=== PATIENT | female | born 1950 | race American Indian/Alaskan Native ===

== ENCOUNTER 2018-03-11 18:37 | Inpatient (IN) | payer MEDICARE, OTHER ==
[2018-03-11 23:36] VITALS: BMI 25.6
[2018-03-12] MEDS: Levothyroxine 100 MCG TAB PO SCH (06:14)
[2018-03-12 07:04] LABS: ALBUMIN 3.9 g/dL (3.5-5.0); CALCIUM 9.1 mg/dL (8.4-10.2)
[2018-03-12 07:12] LABS: MEAN CELL VOLUME 85.2 fl (81.0-99.0); MEAN CORPUSCULAR HEMOGLOBIN 29.1 pg (27.0-31.0); MEAN CORPUSCULAR HGB CONC 34.2 g/dL (33.0-37.0); RBC 3.42 Mil/uL (3.80-5.20); RED CELL DISTRIBUTION WIDTH 14.2 % (11.5-14.5)
[2018-03-12] MEDS ORDERED: Aspirin 325 mg EC Tablets PO SCH (09:00)
[2018-03-12] MEDS ORDERED: Brimonidine 0.2% 50 DROP/5 ML BOTTLE OD SCH (09:00)
[2018-03-12] MEDS ORDERED: Patient's Own Med (Nebivolol [Bystolic] 10 MG) PO SCH (09:00)
[2018-03-12] MEDS ORDERED: Brimonidine 0.2% 50 DROP/5 ML BOTTLE OU SCH (09:00)
[2018-03-12] MEDS ORDERED: Dorzolamide 2% Ophth Soln OD SCH (09:00)
[2018-03-12] MEDS: Pantoprazole 40 mg EC Tab PO SCH (09:01)
--- NOTE | 2018-03-12 14:17 | CP.PCM.CON ---
History of Present Illness - History of Present Illness History of Present Illness: Neurology Consultation Note: Mrs. Ambriz is a 67-year-old woman with a past medical history of multiple ischemic strokes, PFO, HTN, HLD, thyroid cancer s/p thyroidectomy, who recently had a subsequent stroke and presented to [facility]. MRI was done on 03/09/18 and showed a new left frontal/parietal lobe infarct. The patient is aphasic and has residual right side weakness. She was transferred to acute rehab for further care. Dr. David Sneed is her neurologist, and he asked me to assist while the patient is in rehab. Review of Systems - Review of Systems All systems: reviewed and no additional remarkable complaints except Past Patient History - Past Medical History & Family History Past Medical History?: Yes - Past Social History Smoking Status: Never Smoked - CARDIAC Hx Hypercholesterolemia: Yes Hx Hypertension: Yes Other/Comment: 02/10/18 S/P loop recorder (PFO). HX. of CVA with residual mild dysarthria 2016 ; 2017 - PULMONARY Hx Respiratory Disorders: No - NEUROLOGICAL Hx Neurological Disorder: Yes HX Cerebrovascular Accident: Yes (2016 and 2017) Hx Dementia: Yes - HEENT Hx Cataracts: Yes - RENAL Hx Chronic Kidney Disease: No - ENDOCRINE/METABOLIC Other/Comment: Borderline Diabetes - HEMATOLOGICAL/ONCOLOGICAL Hx Blood Disorders: No Hx AIDS: No Hx Human Immunodeficiency Virus (HIV): No - INTEGUMENTARY Hx Dermatological Problems: No - MUSCULOSKELETAL/RHEUMATOLOGICAL Hx Musculoskeletal Disorders: No Hx Falls: No - GASTROINTESTINAL Hx Gastrointestinal Disorders: No - GENITOURINARY/GYNECOLOGICAL Hx Genitourinary Disorders: No - PSYCHIATRIC Hx Depression: Yes Hx Substance Use: No - SURGICAL HISTORY Hx Surgeries: Yes Hx Thyroidectomy: Yes (2011(Thyroid CA)) - ANESTHESIA Hx Anesthesia: Yes Hx Anesthesia Reactions: No Has any member of the family had a problem w/ anesthesia?: No Meds Allergies/Adverse Reactions: Allergies Allergy/AdvReac Type Severity Reaction Status Date / Time FISH Allergy RASH Verified 03/11/18 23:35 fish oil Allergy RASH Verified 03/11/18 23:35 iodine Allergy RASH Verified 03/11/18 23:35 latex Allergy RASH Verified 03/11/18 23:35 Penicillins Allergy RASH Verified 03/11/18 23:35 - Medications Medications: Current Medications Amlodipine Besylate (Norvasc) 5 mg PO DAILY [facility] Last Admin: 03/12/18 08:59 Dose: 5 mg Apixaban (Eliquis) 5 mg PO BID [facility] PRN Reason: Protocol Aspirin (Ecotrin) 81 mg PO DAILY [facility] Atorvastatin Calcium (Lipitor) 80 mg PO HS [facility] Citalopram Hydrobromide (Celexa) 20 mg PO DAILY [facility] Last Admin: 03/12/18 08:56 Dose: 20 mg Donepezil HCl (Aricept) 10 mg PO HS [facility] Home Med (Patient's Own Medication) 1 unit OU Q12 [facility] Home Med (Patient's Own Medication) 1 unit OD BID [facility] Levothyroxine Sodium (Synthroid) 100 mcg PO DAILY@0630 [facility] Last Admin: 03/12/18 06:14 Dose: 100 mcg Lisinopril (Zestril) 10 mg PO DAILY [facility] Last Admin: 03/12/18 09:02 Dose: 10 mg Metoprolol Tartrate (Lopressor) 25 mg PO Q12 [facility] Pantoprazole Sodium (Protonix Ec Tab) 40 mg PO DAILY [facility] Last Admin: 03/12/18 09:01 Dose: 40 mg Physical Exam - Neurological Exam Neurological exam: Abnormal Gait, Alert, CN II-XII Intact, Oriented x3 Additional comments: Reflexes are brisk on the right with upgoing plantar responses. She is aphasic with both productive and receptive aphasia. Right side strength is 3-4/5. Left side is full. NIHSS= 8 Results - Vital Signs Recent Vital Signs: Last Vital Signs Temp 97.5 F L 03/12/18 08:42 Pulse 54 L 03/12/18 09:02 Resp 20 03/12/18 08:42 BP 121/75 03/12/18 09:02 Pulse Ox 98 03/12/18 08:42 - Labs Result Diagrams: 03/12/18 05:45 03/12/18 05:45 Labs: Laboratory Results - last 24 hr 03/12/18 03/12/18 03/12/18 05:45 05:45 05:45 WBC 7.0 RBC 3.42 L Hgb 10.0 L Hct 29.2 L MCV 85.2 MCH 29.1 MCHC 34.2 RDW 14.2 Plt Count 293 Sodium 139 Potassium 4.2 Chloride 103 Carbon Dioxide 30 Anion Gap 10 BUN 12 Creatinine 1.2 Est GFR ( Amer) 54 Est GFR (Non-Af Amer) 45 Random Glucose 114 H Hemoglobin A1c 5.9 Calcium 9.1 Total Bilirubin 0.7 AST 25 ALT 23 Alkaline Phosphatase 65 Total Protein 7.8 Albumin 3.9 Globulin 4.0 H Albumin/Globulin Ratio 1.0 Triglycerides 135 Cholesterol 107 LDL Cholesterol Direct 41 HDL Cholesterol 27 L Assessment & Plan (1) Ischemic stroke Assessment and Plan: Likely embolic in origin. The patient is currently on Eliquis 2.5 mg BID, Aspirin 325 mg and Plavix 75 mg daily. She is high risk for a bleed with all of these medications. Since the origin of her stroke is likely cardioembolic. I recommend increasing Eliquis to 5 mg BID and stopping Plavix. We can continue aspirin at 81 mg daily. Continue other medications as well as PT/OT care plan. Neurology will follow. Thank you. Status: Acute
[2018-03-12] MEDS: SIMBRINZA OD SCH (16:46)
--- NOTE | 2018-03-12 17:37 | PCM.OPOC ---
Physiatry Overall Plan of Care - Overall Plan of Care Estimated Length of Stay in Weeks: 3 Rehab Impairment: Mobility, Gait, Speech, Balance, Coordination Etiologic Diagnosis: Cerebrovascular Accident Rehab/Medical Prognosis: Fair - Anticipated Interventions Physical Therapy:: Yes Occupational Therapy:: Yes Speech Therapy:: Yes Recreational Therapy:: Yes - Therapy Goals Bed Mobility: Independent Ambulation: Supervision Functional Positional Changes:: Independent - Functional Outcomes Functional Outcomes: fair - Discharge Plan Identification of Barriers to Discharge: Home Situation Discharge Destination: Home
--- NOTE | 2018-03-12 17:39 | CP.PCM.CON ---
History of Present Illness - History of Present Illness History of Present Illness: 67 year old female with diagnosis of Cva, with MRI showing frontal, parietal lobe infarction, HTN, thyroid cancer status post thyroidectomy, Review of Systems - Musculoskeletal Musculoskeletal: Abnormal Gait, Muscle Weakness - Neurological Neurological: Abnormal Gait, Weakness Past Patient History - Past Medical History & Family History Past Medical History?: Yes - Past Social History Smoking Status: Never Smoked - CARDIAC Hx Hypertension: Yes - PULMONARY Hx Respiratory Disorders: No - NEUROLOGICAL HX Cerebrovascular Accident: Yes - HEENT Hx Cataracts: Yes - RENAL Hx Chronic Kidney Disease: No - ENDOCRINE/METABOLIC Other/Comment: Borderline Diabetes - HEMATOLOGICAL/ONCOLOGICAL Hx Cancer: Yes - INTEGUMENTARY Hx Dermatological Problems: No - MUSCULOSKELETAL/RHEUMATOLOGICAL Hx Musculoskeletal Disorders: No Hx Falls: No - GASTROINTESTINAL Hx Gastrointestinal Disorders: No - GENITOURINARY/GYNECOLOGICAL Hx Genitourinary Disorders: No - PSYCHIATRIC Hx Depression: Yes Hx Substance Use: No - SURGICAL HISTORY Hx Surgeries: Yes Hx Thyroidectomy: Yes (2011(Thyroid CA)) - ANESTHESIA Hx Anesthesia: Yes Hx Anesthesia Reactions: No Has any member of the family had a problem w/ anesthesia?: No Meds Allergies/Adverse Reactions: Allergies Allergy/AdvReac Type Severity Reaction Status Date / Time FISH Allergy RASH Verified 03/11/18 23:35 fish oil Allergy RASH Verified 03/11/18 23:35 iodine Allergy RASH Verified 03/11/18 23:35 latex Allergy RASH Verified 03/11/18 23:35 Penicillins Allergy RASH Verified 03/11/18 23:35 - Medications Medications: Current Medications Amlodipine Besylate (Norvasc) 5 mg PO DAILY [facility] Last Admin: 03/12/18 08:59 Dose: 5 mg Apixaban (Eliquis) 5 mg PO BID [facility] PRN Reason: Protocol Last Admin: 03/12/18 17:22 Dose: 5 mg Aspirin (Ecotrin) 81 mg PO DAILY [facility] Atorvastatin Calcium (Lipitor) 80 mg PO HS [facility] Citalopram Hydrobromide (Celexa) 20 mg PO DAILY [facility] Last Admin: 03/12/18 08:56 Dose: 20 mg Donepezil HCl (Aricept) 10 mg PO HS [facility] Home Med (Patient's Own Medication) 1 unit OU Q12 [facility] Home Med (Patient's Own Medication) 1 unit OD BID [facility] Last Admin: 03/12/18 16:46 Dose: 1 unit Levothyroxine Sodium (Synthroid) 100 mcg PO DAILY@0630 [facility] Last Admin: 03/12/18 06:14 Dose: 100 mcg Lisinopril (Zestril) 10 mg PO DAILY [facility] Last Admin: 03/12/18 09:02 Dose: 10 mg Metoprolol Tartrate (Lopressor) 25 mg PO Q12 [facility] Pantoprazole Sodium (Protonix Ec Tab) 40 mg PO DAILY [facility] Last Admin: 03/12/18 09:01 Dose: 40 mg Physical Exam - Constitutional Appears: Well - Head Exam Head Exam: ATRAUMATIC, NORMAL INSPECTION, NORMOCEPHALIC - Eye Exam Eye Exam: EOMI, Normal appearance Pupil Exam: NORMAL ACCOMODATION, PERRL - ENT Exam ENT Exam: Mucous Membranes Moist, Normal Exam Additional comments: status post aphasia - Neck Exam Neck exam: Positive for: Normal Inspection - Respiratory Exam Respiratory Exam: NORMAL BREATHING PATTERN - Cardiovascular Exam Cardiovascular Exam: REGULAR RHYTHM - GI/Abdominal Exam GI & Abdominal Exam: Normal Bowel Sounds - Rectal Exam Rectal Exam: NORMAL INSPECTION - Exam External exam: NORMAL EXTERNAL EXAM - Extremities Exam Extremities exam: Positive for: normal inspection Additional comments: right side weakness - Back Exam Back exam: NORMAL INSPECTION - Neurological Exam Neurological exam: Alert Additional comments: status post aphasia - Psychiatric Exam Psychiatric exam: Normal Affect - Skin Skin Exam: Intact, Normal Color Results - Vital Signs Recent Vital Signs: Last Vital Signs Temp 97.5 F L 03/12/18 08:42 Pulse 52 L 03/12/18 14:36 Resp 20 03/12/18 08:42 BP 121/75 03/12/18 09:02 Pulse Ox 100 03/12/18 14:36 - Labs Result Diagrams: 03/12/18 05:45 03/12/18 05:45 Labs: Laboratory Results - last 24 hr 03/12/18 03/12/18 03/12/18 05:45 05:45 05:45 WBC 7.0 RBC 3.42 L Hgb 10.0 L Hct 29.2 L MCV 85.2 MCH 29.1 MCHC 34.2 RDW 14.2 Plt Count 293 Sodium 139 Potassium 4.2 Chloride 103 Carbon Dioxide 30 Anion Gap 10 BUN 12 Creatinine 1.2 Est GFR ( Amer) 54 Est GFR (Non-Af Amer) 45 Random Glucose 114 H Hemoglobin A1c 5.9 Calcium 9.1 Total Bilirubin 0.7 AST 25 ALT 23 Alkaline Phosphatase 65 Total Protein 7.8 Albumin 3.9 Globulin 4.0 H Albumin/Globulin Ratio 1.0 Triglycerides 135 Cholesterol 107 LDL Cholesterol Direct 41 HDL Cholesterol 27 L Assessment & Plan (1) Ischemic stroke Assessment and Plan: plan for physical, occupational, rec and speech therapy status post neurology follow up, written overall plan of care Status: Acute
[2018-03-12] MEDS ORDERED: Patient's Own Med (Atorvastatin [Lipitor] 80 MG) PO SCH (22:00)
--- NOTE | 2018-03-12 22:10 | CARD ---
APPROVED REPORT Date of service: 03/12/2018 EKG Measurement Heart [id number] <Conclusion> Sinus bradycardia T wave abnormality, consider lateral ischemia Abnormal ECG
--- NOTE | 2018-03-13 01:25 | HP ---
HISTORY OF PRESENT ILLNESS: This is a 67-year-old female with history of multiple medical problems. She was in [facility] for CVA. The patient was discharged to acute rehabilitation at [facility] ([facility] Other review of system is negative. ALLERGIES: POSITIVE FOR FISH, FISH OIL, IODINE, LATEX, AND PENICILLIN. MEDICATIONS: Reviewed as per MAR. SOCIAL HISTORY: No history of smoking, EtOH, or substance abuse. FAMILY HISTORY: Noncontributory. PAST MEDICAL HISTORY: Positive for hypertension, hypothyroidism, CVA with aphasia. PHYSICAL EXAMINATION: GENERAL: The patient is in bed, not in any cardiopulmonary distress. VITAL SIGNS: With a blood pressure of 121/75, temperature 97.5, respiratory rate 20, and pulse 54. HEENT: Pupils are equal and reactive to light. Normal-appearing mucosa of the conjunctivae, oropharynx, and nasal membrane mucosa. NECK: Supple. No JVD. No carotid bruit. No lymph node. No thyromegaly. CHEST AND LUNGS: Bilateral symmetrical expansion. Good air exchange. No rales. No rhonchi. CARDIOVASCULAR SYSTEM: PMI not localized. S1, S2. No additional sounds. ABDOMEN: Normoactive bowel sounds. No tenderness. No organomegaly. No masses. EXTREMITIES: No cyanosis, no clubbing, no edema. CENTRAL NERVOUS SYSTEM: Alert, awake, oriented x2. No neurological deficit could be appreciated except for aphasia, but the patient moves all extremities equally. ASSESSMENT: 1. Cerebrovascular accident with aphasia. 2. Hypertension. 3. Hypothyroidism. 4. Hypercholesterolemia. PLAN: Resume the patient's medications from [facility]. Physical therapy. Neurology consult. Dmitry Fuentes MD
[2018-03-13] MEDS: Levothyroxine 100 MCG TAB PO SCH (06:16)
[2018-03-13] MEDS: SIMBRINZA OD SCH ×2 (08:58→17:18)
[2018-03-13] MEDS: Pantoprazole 40 mg EC Tab PO SCH (08:58)
--- NOTE | 2018-03-14 03:04 | PN ---
DATE: 03/13/2018 SUBJECTIVE: The patient is seen today 03/13/2018. She is not in any cardiopulmonary distress. The patient is having aphagia. PHYSICAL EXAMINATION: VITAL SIGNS: Blood pressure 140/74, temperature 97.3, respiratory rate 19 and pulse 57. HEENT: Pupils equal, reactive to light. Normal appearing mucosa of the conjunctivae, oropharynx and nasal membrane mucosa. NECK: Supple. No JVD. No carotid bruit. No lymph node. No thyromegaly. CHEST AND LUNGS: Bilateral symmetrical expansion. Good air exchange. No rales, no rhonchi. CARDIOVASCULAR SYSTEM: PMI not localized. S1, S2. No additional sounds. ABDOMEN: Normoactive bowel sounds. No tenderness. No organomegaly. No masses. EXTREMITIES: No cyanosis, no clubbing, no edema. RAIL GRINDER: Awake and oriented x2. Moves all extremities equally. The patient has expressive aphasia. ASSESSMENT: 1. Cerebrovascular accident. 2. Hypertension. 3. Hypothyroidism. PLAN: Continue current medications. Follow neurology recommendations. Continue physical therapy and occupational therapy. Dmitry Fuentes MD
[2018-03-14] MEDS: Levothyroxine 100 MCG TAB PO SCH (06:29)
[2018-03-14] MEDS: Pantoprazole 40 mg EC Tab PO SCH (08:57)
[2018-03-14] MEDS: SIMBRINZA OD SCH ×2 (08:57→17:40)
[2018-03-15] MEDS: Levothyroxine 100 MCG TAB PO SCH (05:46)
[2018-03-15] MEDS: SIMBRINZA OD SCH ×2 (08:52→17:44)
[2018-03-15] MEDS: Pantoprazole 40 mg EC Tab PO SCH (08:59)
[2018-03-16] MEDS: Levothyroxine 100 MCG TAB PO SCH (05:52)
[2018-03-16] MEDS: SIMBRINZA OD SCH ×2 (08:11→16:50)
[2018-03-16] MEDS: Pantoprazole 40 mg EC Tab PO SCH (08:12)
[2018-03-17] MEDS: Levothyroxine 100 MCG TAB PO SCH (06:43)
[2018-03-17] MEDS: Pantoprazole 40 mg EC Tab PO SCH (08:40)
[2018-03-17] MEDS: SIMBRINZA OD SCH ×2 (08:49→17:45)
--- NOTE | 2018-03-17 20:01 | CP.PCM.PN ---
Subjective - Date & Time of Evaluation Date of Evaluation: 03/13/18 Time of Evaluation: 20:00 - Subjective Subjective: no acute complaints noted Objective - Vital Signs/Intake and Output Vital Signs (last 24 hours): Temp Pulse Resp BP Pulse Ox 97.6 F 57 L 20 143/70 98 03/17/18 10:00 03/17/18 10:00 03/17/18 10:00 03/17/18 10:00 03/17/18 10:00 - Medications Medications: Current Medications Amlodipine Besylate (Norvasc) 5 mg PO DAILY [facility] Last Admin: 03/17/18 08:46 Dose: 5 mg Apixaban (Eliquis) 5 mg PO BID [facility]; Protocol Last Admin: 03/17/18 17:45 Dose: 5 mg Aspirin (Ecotrin) 81 mg PO DAILY [facility] Last Admin: 03/17/18 08:34 Dose: 81 mg Atorvastatin Calcium (Lipitor) 80 mg PO HS [facility] Last Admin: 03/16/18 21:05 Dose: 80 mg Citalopram Hydrobromide (Celexa) 20 mg PO DAILY [facility] Last Admin: 03/17/18 08:44 Dose: 20 mg Donepezil HCl (Aricept) 10 mg PO HS [facility] Last Admin: 03/16/18 21:05 Dose: 10 mg Home Med (Patient's Own Medication) 1 unit OU Q12 [facility] Last Admin: 03/17/18 08:49 Dose: 1 unit Home Med (Patient's Own Medication) 1 unit OD BID [facility] Last Admin: 03/17/18 17:45 Dose: 1 unit Levothyroxine Sodium (Synthroid) 100 mcg PO DAILY@0630 [facility] Last Admin: 03/17/18 06:43 Dose: 100 mcg Lisinopril (Zestril) 10 mg PO DAILY [facility] Last Admin: 03/17/18 08:53 Dose: 10 mg Metoprolol Tartrate (Lopressor) 25 mg PO Q12 [facility] Last Admin: 03/17/18 08:45 Dose: Not Given Pantoprazole Sodium (Protonix Ec Tab) 40 mg PO DAILY [facility] Last Admin: 03/17/18 08:40 Dose: 40 mg - Labs Labs: 03/12/18 05:45 03/12/18 05:45 - Head Exam Head Exam: ATRAUMATIC, NORMAL INSPECTION, NORMOCEPHALIC - Eye Exam Eye Exam: EOMI, Normal appearance Pupil Exam: NORMAL ACCOMODATION, PERRL - ENT Exam ENT Exam: Mucous Membranes Moist, Normal Exam - Respiratory Exam Respiratory Exam: NORMAL BREATHING PATTERN - Cardiovascular Exam Cardiovascular Exam: REGULAR RHYTHM - GI/Abdominal Exam GI & Abdominal Exam: Soft, Normal Bowel Sounds - Rectal Exam Rectal Exam: NORMAL INSPECTION - Exam External exam: NORMAL EXTERNAL EXAM - Extremities Exam Extremities Exam: Full ROM, Normal Capillary Refill, Normal Inspection - Back Exam Back Exam: NORMAL INSPECTION - Neurological Exam Neurological Exam: Alert, Awake - Psychiatric Exam Psychiatric exam: Normal Affect, Normal Mood - Skin Skin Exam: Dry, Normal Color Assessment and Plan (1) Ischemic stroke Assessment & Plan: plan for physical, occupational, rec and speech therapy program Status: Acute
--- NOTE | 2018-03-17 20:09 | PN ---
DATE: 03/17/2018 SUBJECTIVE: The patient is feeling fine. No acute complaints at present. PHYSICAL EXAMINATION: VITAL SIGNS: Stable. NECK: Supple. CHEST: Symmetrical. HEART: Sounds S1 and S2. ABDOMEN: Benign. EXTREMITIES: No clubbing, cyanosis, or edema. IMPRESSION: Acute cerebrovascular accident, deconditioning, gait difficulty. PLAN: Physical therapy, occupational therapy, recreational therapy. The patient for range of motion, strengthening, transfers, ambulation, gait training. Also Recreational Therapy to discuss discharge planning and team conference for the patient. Stanley Burgos MD
--- NOTE | 2018-03-18 01:33 | PN ---
DATE: 03/17/2018 SUBJECTIVE: The patient is not in any cardiopulmonary distress. OBJECTIVE: Blood pressure 143/70, temperature 97.6, respiratory rate 20, and pulse is 57. HEENT: Pupils equal and reactive to light. Slightly pale mucosa of the conjunctivae. NECK: Supple. No JVD. No carotid bruit. No lymph node. No thyromegaly. CHEST AND LUNGS: Bilateral symmetrical expansion. Good air exchange. No rales, no rhonchi. CARDIOVASCULAR SYSTEM: PMI not localized. S1, S2. No additional sounds. ABDOMEN: Normoactive bowel sounds. No tenderness. No organomegaly. No masses. EXTREMITIES: No cyanosis, no clubbing, no edema. REFRIGERATION TECHNICIAN: Alert, awake, oriented x2; and moves all extremities equally. ASSESSMENT: 1. Cerebrovascular accident with aphasia and right-sided hemineglect. 2. Hypertension. 3. Atherosclerotic cerebrovascular disease. 4. Status post left frontal parietal lobe infarction. PLAN: Continue current medications, physical therapy, occupational therapy; and follow Neurology and Physical Medicine and Rehabilitation recommendations. Dmitry Fuentes MD
[2018-03-18] MEDS: Levothyroxine 100 MCG TAB PO SCH (06:14)
[2018-03-18] MEDS: Pantoprazole 40 mg EC Tab PO SCH (08:24)
[2018-03-18] MEDS: SIMBRINZA OD SCH ×2 (08:27→17:16)
--- NOTE | 2018-03-18 11:57 | PSY.TMCNF ---
Nursing - Vital Signs Vital Signs (Last 8 hours): Vital Signs 03/18/18 03/18/18 03/18/18 08:24 08:25 08:39 Temperature 97.8 F Pulse Rate 69 69 69 Respiratory 19 Rate Blood Pressure 129/65 129/65 129/65 O2 Sat by Pulse 96 Oximetry Pain: 0 - Precautions: Precautions: Fall Prevention - Medications/Other Issues Comment: On Aspirin & Eliquiz - Consults Comment: Neuro- seen 03/12. psychologist- awaiting to be seen - Toileting Toileting: Minimal Assistance - Bladder Management Bladder Pattern: Normal Voiding Method: Toilet, Bedpan Bladder Management: Moderate Assistance Frequency of Accidents: with occasional - Bowel Management Bowel Pattern: Normal Comment: no BM since 03/15, will monitor Bowel Management: Moderate Assistance Frequency of Accidents: none - Transfers Transfers: Minimal Assistance - ADL's ADL's: Moderate Assistance - Pain Management Comments: denies pain - Patient/Family Teaching Comments: unable to give teachings to patient, requires frequent verbal cueing & reminders - Goals/Time Frame Comments: fall & safety precaution - Provider Provider: JackieRN,CRRN Physical Therapy - Bed Mobility Bed Mobility: Supervision, Verbal Cues, Contact Guard - Transfers Wheelchair to Mat: Supervision, Verbal Cues, Contact Guard Sit to Stand: Supervision, Verbal Cues Comment: hand over hand due to vision impairments - Ambulation Level of Assistance: Supervision, Verbal Cues Distance (ft.): 200 Assistive Devices: N/A - Stair Negotiation Stairs: Level of Assistance: Supervision, Verbal Cues, Contact Guard Stairs: Assistive Devices: Left Handrail, Right Handrail - Standing Balance Static Stand: Supervision Dynamic Stand: Supervision, Contact Guard Assist - Pain Pain (assessed during therapy session): 0 - Insight/Carryover Insight/Carryover: Poor - Patient/Family Education Comment: safety, therapy goals, therapy POC, therapy schedule, use of call lagunas, stroke recovery, wheelchair mobility. patient with impaired communication - Assessment/Plan Assessment: Patient is a 67 yo female presenting to [facility] s/p acute CVA. Ms Ambriz presents with impaired dynamic standing balance, impaired activity tolerance, RUE weakness, impaired coordination RUE/LE, R sided neglect, impaired cognition and expressive aphasis . these defecits impacting pt's ability to complete self care routine , transfers and mobility safely and effectively. recommeded dme: 3 in 1 commode, shower chair. recommend 24/7 supervision upon d/c home. Pt will benefit from continue skilled IP OT services 5-6x/week as per plan of care. - Goals Timeframe: 1 week Goals: supervision transfers. supervision toileting. supervision LB ADLs. fee ding/grooming s/u - Provider License Number: [id number] Occupational Therapy - Arousal/Attention/Orientation Level of Consciousness: Awake, Alert, Forgetful, Confused Patient Orientation: Person Assessment Comment: pt is confused, only oriented to herself - ADL/IADL Grooming: Minimal Assistance, Moderate Assistance Bathing-Upper Extremity: Minimal Assistance Bathing-Lower Extremity: Minimal Assistance Dressing-Upper Extremity: Minimal Assistance Dressing-Lower Extremity: Minimal Assistance - Sitting Balance Static Sitting: Supervision Dynamic Sitting: Requires supervision - Transfers Wheelchair to Bed Transfers: Supervision, Contact Guard Toilet Transfers: Supervision, Contact Guard Tub Transfers: Supervision, Contact Guard - Upper Extremity Status Right Upper Extremity Comment: AROM WFLs. strength 4/5. impaired coordination Left Upper Extremity Comment: AROM WFLs - Pain Pain (assessed during therapy session): 0 - Insight/Carryover Insight/Carryover: Poor - Patient/Family Education Comment: safety, therapy goals, therapy POC, therapy schedule, use of call lagunas, stroke recovery, wheelchair mobility. patient with impaired communication - Assessment/Plan Assessment: Patient is a 67 yo female presenting to [facility] s/p acute CVA. Ms Ambriz presents with impaired dynamic standing balance, impaired activity tolerance, RUE weakness, impaired coordination RUE/LE, R sided neglect, impaired cognition and expressive aphasis . these defecits impacting pt's ability to complete self care routine , transfers and mobility safely and effectively. recommeded dme: 3 in 1 commode, shower chair. recommend 24/7 supervision upon d/c home. Pt will benefit from continue skilled IP OT services 5-6x/week as per plan of care. - Goals Timeframe: 1 week Goals: supervision transfers. supervision toileting. supervision LB ADLs. feeding/grooming s/u - Provider Therapist: RAFFAELE Decker/Fifi License Number: [id number] Speech Therapy - Consult Information Patient on Program: Yes Medical Diagnosis: CVA Treatment Diagnosis: moderate-severe receptive/expressive aphasia - Assessment Expressive Language Impairment: Moderate Receptive Language Impairment: Moderate Problem Solving Impairment: Moderate Memory Impairment: Moderate - Plan Assessment: Patient is a 67 yo female presenting to [facility] acute CVA. Ms Ambriz presents with impaired dynamic standing balance, impaired activity tolerance, RUE weakness, impaired coordination RUE/LE, R sided neglect, impaired cognition and expressive aphasis . these defecits impacting pt's ability to complete self care routine , transfers and mobility safely and effectively. recommeded dme: 3 in 1 commode, shower chair. recommend 24/7 supervision upon d/c home. Pt will benefit from continue skilled IP OT services 5-6x/week as per plan of care. Plan: Continue Speech/Language Therapy - Provider Therapist: Siomara Rodriguez License Number: [id number] Recreational Therapy - Participation Participation: Participates in Individual and/or Group Sessions - Attendance Attendance: 3-5 times per week - Activities Leisure Activities: Cards and Games - Socialization Level of Socialization: Initiates/interacts freely with care givers and peer - Diversional Time Diversional Time: television, music - Assessment Assessment/Plan: Patient is a 67 yo female presenting to [facility] acute CVA. Ms Ambriz presents with impaired dynamic standing balance, impaired activity tolerance, RUE weakness, impaired coordination RUE/LE, R sided neglect, impaired cognition and expressive aphasis . these defecits impacting pt's ability to complete self care routine , transfers and mobility safely and effectively. recommeded dme: 3 in 1 commode, shower chair. recommend 24/7 supervision upon d/c home. Pt will benefit from continue skilled IP OT services 5-6x/week as per plan of care. - Provider Therapist: Deanna Menjivar, CERTIFIED TECHNICIAN SPECIALIST #[id number] Nutrition - Current Diet Current Diet/ Supplement/ Feedings: 2 gram Na low fat/low cholesterolll low consistent CHO - Appetite Percent Meal Consumed: 75-100% - Comments Comments: unable to give teachings to patient, requires frequent verbal cueing & reminders - Assessment/Goals/Time Frame Assessment/Goals/Time Frame: On Aspirin & Eliquiz - Provider Provider: Lolita Chew RD Case Management - Discharge Plan Discharge Plan: Home with significant other/family Rehabilitation Plan - Treatment Plan Treatment Plan: Physical Therapy, Occupational Therapy, Speech, Dietary, Patient/Family Education - Recommendation Recommendation: Physical Therapy, Occupational Therapy, Speech, Dietary, Patient/Family Education - Discharge Plan Discharge to: Home (mar 28)
--- NOTE | 2018-03-18 13:25 | CP.PCM.PN ---
Subjective - Date & Time of Evaluation Date of Evaluation: 03/18/18 Time of Evaluation: 12:00 - Subjective Subjective: NO ACUTE COMPLAINTS AT PRESENT Objective - Vital Signs/Intake and Output Vital Signs (last 24 hours): Temp Pulse Resp BP Pulse Ox 97.8 F 69 19 129/65 96 03/18/18 08:25 03/18/18 08:39 03/18/18 08:25 03/18/18 08:39 03/18/18 08:25 - Medications Medications: Current Medications Amlodipine Besylate (Norvasc) 5 mg PO DAILY [facility] Last Admin: 03/18/18 08:24 Dose: 5 mg Apixaban (Eliquis) 5 mg PO BID [facility]; Protocol Last Admin: 03/18/18 08:24 Dose: 5 mg Aspirin (Ecotrin) 81 mg PO DAILY [facility] Last Admin: 03/18/18 08:25 Dose: 81 mg Atorvastatin Calcium (Lipitor) 80 mg PO HS [facility] Last Admin: 03/17/18 21:11 Dose: 80 mg Citalopram Hydrobromide (Celexa) 20 mg PO DAILY [facility] Last Admin: 03/18/18 08:25 Dose: 20 mg Donepezil HCl (Aricept) 10 mg PO HS [facility] Last Admin: 03/17/18 21:11 Dose: 10 mg Home Med (Patient's Own Medication) 1 unit OU Q12 [facility] Last Admin: 03/18/18 08:29 Dose: 1 unit Home Med (Patient's Own Medication) 1 unit OD BID [facility] Last Admin: 03/18/18 08:27 Dose: 1 unit Levothyroxine Sodium (Synthroid) 100 mcg PO DAILY@0630 [facility] Last Admin: 03/18/18 06:14 Dose: 100 mcg Lisinopril (Zestril) 10 mg PO DAILY [facility] Last Admin: 03/18/18 08:25 Dose: 10 mg Metoprolol Tartrate (Lopressor) 25 mg PO Q12 [facility] Last Admin: 03/18/18 08:39 Dose: Not Given Pantoprazole Sodium (Protonix Ec Tab) 40 mg PO DAILY [facility] Last Admin: 03/18/18 08:24 Dose: 40 mg - Labs Labs: 03/12/18 05:45 03/12/18 05:45 - Head Exam Head Exam: ATRAUMATIC, NORMAL INSPECTION, NORMOCEPHALIC - Eye Exam Eye Exam: EOMI, Normal appearance, PERRL Pupil Exam: NORMAL ACCOMODATION - ENT Exam ENT Exam: Mucous Membranes Moist, Normal Exam - Neck Exam Neck Exam: Full ROM, Normal Inspection - Respiratory Exam Respiratory Exam: NORMAL BREATHING PATTERN - Cardiovascular Exam Cardiovascular Exam: REGULAR RHYTHM - GI/Abdominal Exam GI & Abdominal Exam: Soft, Normal Bowel Sounds - Rectal Exam Rectal Exam: NORMAL INSPECTION - Exam External exam: NORMAL EXTERNAL EXAM - Extremities Exam Extremities Exam: Full ROM, Normal Capillary Refill, Normal Inspection - Back Exam Back Exam: NORMAL INSPECTION - Neurological Exam Neurological Exam: Alert, Awake Neuro motor strength exam: Left Upper Extremity: 3, Right Upper Extremity: 3, Left Lower Extremity: 3, Right Lower Extremity: 3 - Psychiatric Exam Psychiatric exam: Normal Affect, Normal Mood Assessment and Plan (1) Ischemic stroke Assessment & Plan: STATUS POST TEAM dc FOR OCT 6 Status: Acute
--- NOTE | 2018-03-18 13:27 | CP.PCM.PN ---
Subjective - Date & Time of Evaluation Date of Evaluation: 03/16/18 Time of Evaluation: 12:00 - Subjective Subjective: NO ACUTE COMPLAINTS AT PRESENT Objective - Vital Signs/Intake and Output Vital Signs (last 24 hours): Temp Pulse Resp BP Pulse Ox 97.8 F 69 19 129/65 96 03/18/18 08:25 03/18/18 08:39 03/18/18 08:25 03/18/18 08:39 03/18/18 08:25 - Medications Medications: Current Medications Amlodipine Besylate (Norvasc) 5 mg PO DAILY [facility] Last Admin: 03/18/18 08:24 Dose: 5 mg Apixaban (Eliquis) 5 mg PO BID [facility]; Protocol Last Admin: 03/18/18 08:24 Dose: 5 mg Aspirin (Ecotrin) 81 mg PO DAILY [facility] Last Admin: 03/18/18 08:25 Dose: 81 mg Atorvastatin Calcium (Lipitor) 80 mg PO HS [facility] Last Admin: 03/17/18 21:11 Dose: 80 mg Citalopram Hydrobromide (Celexa) 20 mg PO DAILY [facility] Last Admin: 03/18/18 08:25 Dose: 20 mg Donepezil HCl (Aricept) 10 mg PO HS [facility] Last Admin: 03/17/18 21:11 Dose: 10 mg Home Med (Patient's Own Medication) 1 unit OU Q12 [facility] Last Admin: 03/18/18 08:29 Dose: 1 unit Home Med (Patient's Own Medication) 1 unit OD BID [facility] Last Admin: 03/18/18 08:27 Dose: 1 unit Levothyroxine Sodium (Synthroid) 100 mcg PO DAILY@0630 [facility] Last Admin: 03/18/18 06:14 Dose: 100 mcg Lisinopril (Zestril) 10 mg PO DAILY [facility] Last Admin: 03/18/18 08:25 Dose: 10 mg Metoprolol Tartrate (Lopressor) 25 mg PO Q12 [facility] Last Admin: 03/18/18 08:39 Dose: Not Given Pantoprazole Sodium (Protonix Ec Tab) 40 mg PO DAILY [facility] Last Admin: 03/18/18 08:24 Dose: 40 mg - Labs Labs: 03/12/18 05:45 03/12/18 05:45 - Head Exam Head Exam: ATRAUMATIC, NORMAL INSPECTION, NORMOCEPHALIC - Eye Exam Eye Exam: EOMI, Normal appearance, PERRL Pupil Exam: NORMAL ACCOMODATION - ENT Exam ENT Exam: Mucous Membranes Moist, Normal Exam - Neck Exam Neck Exam: Normal Inspection - Respiratory Exam Respiratory Exam: Clear to Ausculation Bilateral, NORMAL BREATHING PATTERN - Cardiovascular Exam Cardiovascular Exam: REGULAR RHYTHM - GI/Abdominal Exam GI & Abdominal Exam: Soft, Normal Bowel Sounds - Exam External exam: NORMAL EXTERNAL EXAM - Extremities Exam Extremities Exam: Full ROM, Normal Capillary Refill, Normal Inspection - Back Exam Back Exam: NORMAL INSPECTION - Neurological Exam Neurological Exam: Alert, Awake Neuro motor strength exam: Left Upper Extremity: 3, Right Upper Extremity: 3, Left Lower Extremity: 3, Right Lower Extremity: 3 - Psychiatric Exam Psychiatric exam: Normal Affect, Normal Mood - Skin Skin Exam: Dry, Intact Assessment and Plan (1) Ischemic stroke Assessment & Plan: PLAN FOR PHYSICAL, OCCUPATIONAL REC THERAPY Status: Acute
[2018-03-19] MEDS: Levothyroxine 100 MCG TAB PO SCH (06:56)
[2018-03-19] MEDS: Pantoprazole 40 mg EC Tab PO SCH (08:12)
[2018-03-19] MEDS: SIMBRINZA OD SCH ×2 (08:13→16:58)
--- NOTE | 2018-03-20 00:12 | PN ---
DATE: 03/19/2018 DAILY PROGRESS NOTE SUBJECTIVE: The patient is seen today, 03/19/2018. She is not in any cardiopulmonary distress. The patient still has aphasia. PHYSICAL EXAMINATION: VITAL SIGNS: Blood pressure 133/78, temperature 98, respiratory rate 20, and pulse 55. HEENT: Pupils are equal and reactive to light. Normal-appearing mucosa of the conjunctivae, oropharynx, and nasal membrane mucosa. NECK: Supple. No JVD. No carotid bruits. No lymph nodes. No thyromegaly. CHEST AND LUNGS: Bilaterally symmetrical expansion. Good air exchange. No rales. No rhonchi. CARDIOVASCULAR SYSTEM: PMI not localized. S1 and S2. No additional sounds. ABDOMEN: Normoactive bowel sounds. No tenderness. No organomegaly. No masses. EXTREMITIES: No cyanosis. No clubbing. No edema. CENTRAL NERVOUS SYSTEM: Awake but aphasic and oriented x2 and moves all extremities equally. ASSESSMENT: 1. Cerebrovascular accident. 2. Hypertension. 3. Hypercholesterolemia. 4. Hypothyroidism. PLAN: Continue current medications and management. Follow neurology recommendations. Continue physical therapy, speech therapy, and occupational therapy. Aleja MD Alfredo
[2018-03-20] MEDS: Levothyroxine 100 MCG TAB PO SCH (05:39)
[2018-03-20 06:39] LABS: HEMOGLOBIN 9.8 g/dL (12.0-16.0); MEAN CELL VOLUME 85.5 fl (81.0-99.0); MEAN CORPUSCULAR HEMOGLOBIN 28.6 pg (27.0-31.0); MEAN CORPUSCULAR HGB CONC 33.5 g/dL (33.0-37.0); RBC 3.43 Mil/uL (3.80-5.20); RED CELL DISTRIBUTION WIDTH 14.2 % (11.5-14.5); WHITE BLOOD COUNT 5.7 K/uL (4.8-10.8)
[2018-03-20 06:57] LABS: ALB/GLOB RATIO 0.9 (1.0-2.1); ALBUMIN 3.8 g/dL (3.5-5.0); CALCIUM 9.1 mg/dL (8.4-10.2)
[2018-03-20] MEDS: SIMBRINZA OD SCH ×2 (08:32→16:47)
[2018-03-20] MEDS: Pantoprazole 40 mg EC Tab PO SCH (08:33)
--- NOTE | 2018-03-20 13:56 | CP.PCM.PN ---
Subjective - Date & Time of Evaluation Date of Evaluation: 03/20/18 Time of Evaluation: 13:00 - Subjective Subjective: complaining of being tired from therapy but no acute [id number] Objective - Vital Signs/Intake and Output Vital Signs (last 24 hours): Temp Pulse Resp BP Pulse Ox 98.4 F 63 18 125/74 99 03/20/18 08:35 03/20/18 08:35 03/20/18 08:35 03/20/18 08:35 03/20/18 08:35 - Medications Medications: Current Medications Amlodipine Besylate (Norvasc) 5 mg PO DAILY [facility] Last Admin: 03/20/18 08:32 Dose: 5 mg Apixaban (Eliquis) 5 mg PO BID [facility]; Protocol Last Admin: 03/20/18 08:31 Dose: 5 mg Aspirin (Ecotrin) 81 mg PO DAILY [facility] Last Admin: 03/20/18 08:31 Dose: 81 mg Atorvastatin Calcium (Lipitor) 80 mg PO HS [facility] Last Admin: 03/19/18 21:06 Dose: 80 mg Citalopram Hydrobromide (Celexa) 20 mg PO DAILY [facility] Last Admin: 03/20/18 08:33 Dose: 20 mg Donepezil HCl (Aricept) 10 mg PO HS [facility] Last Admin: 03/19/18 21:06 Dose: 10 mg Home Med (Patient's Own Medication) 1 unit OU Q12 [facility] Last Admin: 03/20/18 08:32 Dose: 1 unit Home Med (Patient's Own Medication) 1 unit OD BID [facility] Last Admin: 03/20/18 08:32 Dose: 1 unit Levothyroxine Sodium (Synthroid) 100 mcg PO DAILY@0630 [facility] Last Admin: 03/20/18 05:39 Dose: 100 mcg Lisinopril (Zestril) 10 mg PO DAILY [facility] Last Admin: 03/20/18 08:33 Dose: 10 mg Metoprolol Tartrate (Lopressor) 25 mg PO Q12 [facility] Last Admin: 03/20/18 08:32 Dose: Not Given Pantoprazole Sodium (Protonix Ec Tab) 40 mg PO DAILY [facility] Last Admin: 03/20/18 08:33 Dose: 40 mg - Labs Labs: 03/20/18 05:20 03/20/18 05:20 - Head Exam Head Exam: ATRAUMATIC, NORMAL INSPECTION, NORMOCEPHALIC - Eye Exam Eye Exam: EOMI, Normal appearance, PERRL Pupil Exam: NORMAL ACCOMODATION - ENT Exam ENT Exam: Mucous Membranes Moist, Normal Exam - Neck Exam Neck Exam: Normal Inspection - Respiratory Exam Respiratory Exam: Clear to Ausculation Bilateral, NORMAL BREATHING PATTERN - Cardiovascular Exam Cardiovascular Exam: REGULAR RHYTHM - GI/Abdominal Exam GI & Abdominal Exam: Soft - Rectal Exam Rectal Exam: NORMAL INSPECTION - Exam External exam: NORMAL EXTERNAL EXAM - Extremities Exam Extremities Exam: Full ROM, Normal Capillary Refill - Back Exam Back Exam: NORMAL INSPECTION - Neurological Exam Neurological Exam: Alert, Awake Neuro motor strength exam: Left Upper Extremity: 3, Right Upper Extremity: 3, Left Lower Extremity: 3, Right Lower Extremity: 3 - Psychiatric Exam Psychiatric exam: Normal Affect, Normal Mood - Skin Skin Exam: Dry, Intact, Normal Color Assessment and Plan (1) Ischemic stroke Assessment & Plan: plan for physical, occupational, rec therapy discussed goals with family Status: Acute
[2018-03-21] MEDS: Levothyroxine 100 MCG TAB PO SCH (06:08)
[2018-03-21] MEDS: SIMBRINZA OD SCH ×2 (08:58→17:14)
[2018-03-21] MEDS: Pantoprazole 40 mg EC Tab PO SCH (08:59)
[2018-03-22] MEDS: Levothyroxine 100 MCG TAB PO SCH (05:52)
[2018-03-22] MEDS: SIMBRINZA OD SCH ×2 (08:44→16:49)
[2018-03-22] MEDS: Pantoprazole 40 mg EC Tab PO SCH (08:45)
[2018-03-23] MEDS: Levothyroxine 100 MCG TAB PO SCH (06:10)
[2018-03-23] MEDS: Pantoprazole 40 mg EC Tab PO SCH (08:26)
[2018-03-23] MEDS: SIMBRINZA OD SCH ×2 (08:26→16:22)
[2018-03-24] MEDS: Levothyroxine 100 MCG TAB PO SCH (05:54)
--- NOTE | 2018-03-24 07:01 | PN ---
DATE: 03/23/2018 SUBJECTIVE: The patient is seen today, 03/23/2018. She is not in any cardiopulmonary distress. PHYSICAL EXAMINATION: VITAL SIGNS: Blood pressure 128/66, temperature 97.3, respiratory rate 20, and pulse 64. HEENT: Pupils equal, and reactive to light. Normal-appearing mucosa of the conjunctivae, oropharynx, and nasal membrane mucosa. NECK: Supple. No JVD. No carotid bruit. No lymph node. No thyromegaly. CARDIOVASCULAR SYSTEM: PMI not localized. S1, S2. No additional sounds. CHEST AND LUNGS: Bilateral symmetrical expansion. Good air exchange. ABDOMEN: Normoactive bowel sounds. No tenderness. No organomegaly. No masses. EXTREMITIES: No cyanosis, no clubbing, no edema. 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 ASSESSMENT: 1. Cerebrovascular accident. 2. Hypertension. 3. Hypercholesterolemia. 4. 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 PLAN: Continue current medications and management. Aleja MD Alfredo
[2018-03-24] MEDS: Pantoprazole 40 mg EC Tab PO SCH (08:45)
[2018-03-24] MEDS: SIMBRINZA OD SCH ×2 (08:45→17:18)
--- NOTE | 2018-03-24 15:18 | CP.PCM.PN ---
Subjective - Date & Time of Evaluation Date of Evaluation: 03/21/18 Time of Evaluation: 13:00 - Subjective Subjective: no acute complaints at present Objective - Vital Signs/Intake and Output Vital Signs (last 24 hours): Temp Pulse Resp BP Pulse Ox 97.2 F L 62 20 132/69 98 03/24/18 07:30 03/24/18 08:50 03/24/18 07:30 03/24/18 08:50 03/24/18 07:30 - Medications Medications: Current Medications Amlodipine Besylate (Norvasc) 5 mg PO DAILY [facility] Last Admin: 03/24/18 08:49 Dose: 5 mg Apixaban (Eliquis) 5 mg PO BID [facility]; Protocol Last Admin: 03/24/18 08:46 Dose: 5 mg Aspirin (Ecotrin) 81 mg PO DAILY [facility] Last Admin: 03/24/18 08:46 Dose: 81 mg Atorvastatin Calcium (Lipitor) 80 mg PO HS [facility] Last Admin: 03/23/18 21:19 Dose: 80 mg Citalopram Hydrobromide (Celexa) 20 mg PO DAILY [facility] Last Admin: 03/24/18 08:46 Dose: 20 mg Donepezil HCl (Aricept) 10 mg PO HS [facility] Last Admin: 03/23/18 21:19 Dose: 10 mg Home Med (Patient's Own Medication) 1 unit OU Q12 [facility] Last Admin: 03/24/18 08:45 Dose: 1 unit Home Med (Patient's Own Medication) 1 unit OD BID [facility] Last Admin: 03/24/18 08:45 Dose: 1 unit Levothyroxine Sodium (Synthroid) 100 mcg PO DAILY@0630 [facility] Last Admin: 03/24/18 05:54 Dose: 100 mcg Lisinopril (Zestril) 10 mg PO DAILY [facility] Last Admin: 03/24/18 08:50 Dose: 10 mg Metoprolol Tartrate (Lopressor) 25 mg PO Q12 [facility] Last Admin: 03/24/18 08:48 Dose: Not Given Pantoprazole Sodium (Protonix Ec Tab) 40 mg PO DAILY [facility] Last Admin: 03/24/18 08:45 Dose: 40 mg - Labs Labs: 03/20/18 05:20 03/20/18 05:20 - Head Exam Head Exam: ATRAUMATIC, NORMAL INSPECTION, NORMOCEPHALIC - Eye Exam Eye Exam: EOMI, Normal appearance, PERRL Pupil Exam: NORMAL ACCOMODATION - ENT Exam ENT Exam: Mucous Membranes Moist, Normal Exam - Neck Exam Neck Exam: Full ROM, Normal Inspection - Respiratory Exam Respiratory Exam: Clear to Ausculation Bilateral, NORMAL BREATHING PATTERN - Cardiovascular Exam Cardiovascular Exam: REGULAR RHYTHM - GI/Abdominal Exam GI & Abdominal Exam: Soft, Normal Bowel Sounds - Rectal Exam Rectal Exam: NORMAL INSPECTION - Exam Bimanual exam: NORMAL BIMANUAL EXAM - Extremities Exam Extremities Exam: Full ROM, Normal Capillary Refill - Neurological Exam Neurological Exam: Alert, Awake Neuro motor strength exam: Left Upper Extremity: 3, Right Upper Extremity: 3, Left Lower Extremity: 3, Right Lower Extremity: 3 - Psychiatric Exam Psychiatric exam: Normal Affect, Normal Mood - Skin Skin Exam: Dry, Intact Assessment and Plan (1) Ischemic stroke Assessment & Plan: plan for physical, occupational therapy, rec therapy Status: Acute
--- NOTE | 2018-03-24 15:22 | CP.PCM.PN ---
Subjective - Date & Time of Evaluation Date of Evaluation: 03/24/18 Time of Evaluation: 11:00 - Subjective Subjective: no acute complaints except, generalized weakness Objective - Vital Signs/Intake and Output Vital Signs (last 24 hours): Temp Pulse Resp BP Pulse Ox 97.2 F L 62 20 132/69 98 03/24/18 07:30 03/24/18 08:50 03/24/18 07:30 03/24/18 08:50 03/24/18 07:30 - Medications Medications: Current Medications Amlodipine Besylate (Norvasc) 5 mg PO DAILY [facility] Last Admin: 03/24/18 08:49 Dose: 5 mg Apixaban (Eliquis) 5 mg PO BID [facility]; Protocol Last Admin: 03/24/18 08:46 Dose: 5 mg Aspirin (Ecotrin) 81 mg PO DAILY [facility] Last Admin: 03/24/18 08:46 Dose: 81 mg Atorvastatin Calcium (Lipitor) 80 mg PO HS [facility] Last Admin: 03/23/18 21:19 Dose: 80 mg Citalopram Hydrobromide (Celexa) 20 mg PO DAILY [facility] Last Admin: 03/24/18 08:46 Dose: 20 mg Donepezil HCl (Aricept) 10 mg PO HS [facility] Last Admin: 03/23/18 21:19 Dose: 10 mg Home Med (Patient's Own Medication) 1 unit OU Q12 [facility] Last Admin: 03/24/18 08:45 Dose: 1 unit Home Med (Patient's Own Medication) 1 unit OD BID [facility] Last Admin: 03/24/18 08:45 Dose: 1 unit Levothyroxine Sodium (Synthroid) 100 mcg PO DAILY@0630 [facility] Last Admin: 03/24/18 05:54 Dose: 100 mcg Lisinopril (Zestril) 10 mg PO DAILY [facility] Last Admin: 03/24/18 08:50 Dose: 10 mg Metoprolol Tartrate (Lopressor) 25 mg PO Q12 [facility] Last Admin: 03/24/18 08:48 Dose: Not Given Pantoprazole Sodium (Protonix Ec Tab) 40 mg PO DAILY [facility] Last Admin: 03/24/18 08:45 Dose: 40 mg - Labs Labs: 03/20/18 05:20 03/20/18 05:20 - Head Exam Head Exam: ATRAUMATIC, NORMAL INSPECTION, NORMOCEPHALIC - Eye Exam Eye Exam: EOMI, Normal appearance - ENT Exam ENT Exam: Mucous Membranes Moist, Normal Exam - Neck Exam Neck Exam: Normal Inspection - Respiratory Exam Respiratory Exam: NORMAL BREATHING PATTERN - Cardiovascular Exam Cardiovascular Exam: REGULAR RHYTHM - GI/Abdominal Exam GI & Abdominal Exam: Soft, Normal Bowel Sounds - Rectal Exam Rectal Exam: NORMAL INSPECTION - Exam External exam: NORMAL EXTERNAL EXAM - Extremities Exam Extremities Exam: Full ROM, Normal Capillary Refill, Normal Inspection - Back Exam Back Exam: NORMAL INSPECTION - Neurological Exam Neurological Exam: Alert, Awake Neuro motor strength exam: Left Upper Extremity: 3, Right Upper Extremity: 3, Left Lower Extremity: 3, Right Lower Extremity: 3 - Psychiatric Exam Psychiatric exam: Normal Affect, Normal Mood - Skin Skin Exam: Normal Color Assessment and Plan (1) Ischemic stroke Assessment & Plan: plan for range of motion, strenghtening transfers and gait training for team conference Status: Acute
[2018-03-25] MEDS: Levothyroxine 100 MCG TAB PO SCH (06:17)
[2018-03-25] MEDS: Pantoprazole 40 mg EC Tab PO SCH (08:23)
[2018-03-25] MEDS: SIMBRINZA OD SCH ×2 (08:25→17:33)
--- NOTE | 2018-03-25 11:42 | PSY.TMCNF ---
Nursing - Vital Signs Vital Signs (Last 8 hours): Vital Signs 03/25/18 03/25/18 03/25/18 08:23 08:24 09:05 Temperature 96.8 F L Pulse Rate 72 72 72 Respiratory 18 Rate Blood Pressure 139/68 139/68 139/68 O2 Sat by Pulse 100 Oximetry Pain: 0 - Precautions: Precautions: Fall Prevention - Medications/Other Issues Comment: Pt at low nutritional risk. Follow-up due on 03/28/2018 - Consults Comment: Neuro- seen 03/12. psychologist- awaiting to be seen - Toileting Toileting: Minimal Assistance - Bladder Management Bladder Pattern: Normal, Incontinent Voiding Method: Toilet - Bowel Management Bowel Pattern: Normal Comment: no BM since 03/15, will monitor Bowel Management: Moderate Assistance Frequency of Accidents: none - Transfers Transfers: Minimal Assistance - ADL's ADL's: Moderate Assistance - Pain Management Comments: denies pain - Patient/Family Teaching Comments: unable to give teachings to patient, requires frequent verbal cueing & reminders - Goals/Time Frame Comments: fall & safety precaution - Provider Provider: JackieRN,CRRN Physical Therapy - Bed Mobility Bed Mobility: Supervision, Verbal Cues - Transfers Wheelchair to Mat: Supervision, Verbal Cues Sit to Stand: Supervision, Verbal Cues - Ambulation Level of Assistance: Supervision, Verbal Cues Distance (ft.): 250 Assistive Devices: N/A - Stair Negotiation Stairs: Level of Assistance: Supervision, Verbal Cues Stairs: Assistive Devices: Left Handrail, Right Handrail - Standing Balance Static Stand: Supervision Dynamic Stand: Supervision, Contact Guard Assist - Pain Pain (assessed during therapy session): 0 Comment: pt denies pain - Insight/Carryover Insight/Carryover: Poor - Patient/Family Education Comment: safety, therapy schedule, therapy goals, POC, stroke recovery, use of call lagunas, dme/ae education - Assessment/Plan Assessment: Patient is a 67 yo female presenting to [facility] s/p acute CVA. Ms Ambriz presents with impaired dynamic standing balance, impaired activity tolerance, RUE weakness, impaired coordination RUE/LE, R sided neglect, impaired cognition and expressive aphasia . these defecits impacting pt's ability to complete self care routine , transfers and mobility safely and effectively. patient has made gains with adls . pt able to complete ub adls with supervision and cueing and lb dressing and toilting routine with supervision and cues, pt requires cue to begin task, for sequencing and for completion of task. recommeded dme: 3 in 1 commode, shower chair , recommend scheduled caregiver training prior to d/c home. recommend 24/7 supervision upon d/c home and assist with iadls. Pt will benefit from continue skilled IP OT services 5-6x/week as per plan of care. - Goals Timeframe: 7 days Goals: supervision transfers. supervision toileting. supervision LB ADLs. feeding/grooming s/u - Provider Therapist: M License Number: [id number] Occupational Therapy - Arousal/Attention/Orientation Patient Orientation: Person - ADL/IADL Self Feeding: Supervision, Verbal Cues, Set-up Help Grooming: Verbal Cues, Set-up Help, Minimal Assistance Bathing-Upper Extremity: Supervision, Verbal Cues, Set-up Help Bathing-Lower Extremity: Supervision, Set-up Help, Contact Guard Dressing-Upper Extremity: Supervision, Verbal Cues, Set-up Help Dressing-Lower Extremity: Verbal Cues, Set-up Help, Contact Guard, Minimal Assistance Comment: cues needed for initiation, sequencing and completion of task - Sitting Balance Static Sitting: Supervision Dynamic Sitting: Requires supervision - Transfers Wheelchair to Bed Transfers: Supervision, Verbal Cues, Contact Guard Toilet Transfers: Supervision, Verbal Cues, Contact Guard - Wheelchair Management Level of Assistance: Supervision, Verbal Cues, Minimal Assistance Distance (ft.): 150 - Upper Extremity Status Right Upper Extremity Comment: AROM WFLs. strength 4/5. impaired coordination Left Upper Extremity Comment: AROM WFLs - Pain Pain (assessed during therapy session): 0 Comment: pt denies pain - Insight/Carryover Insight/Carryover: Poor - Patient/Family Education Comment: safety, therapy schedule, therapy goals, POC, stroke recovery, use of call lagunas, dme/ae education - Assessment/Plan Assessment: Patient is a 67 yo female presenting to [facility] s/p acute CVA. Ms Ambriz presents with impaired dynamic standing balance, impaired activity tolerance, RUE weakness, impaired coordination RUE/LE, R sided neglect, impaired cognition and expressive aphasia . these defecits impacting pt's ability to complete self care routine , transfers and mobility safely and effectively. onesimo swan has made gains with adls . pt able to complete ub adls with supervision and cueing and lb dressing and toilting routine with supervision and cues, pt requires cue to begin task, for sequencing and for completion of task. recommeded dme: 3 in 1 commode, shower chair , recommend scheduled caregiver training prior to d/c home. recommend 24/7 supervision upon d/c home and assist with iadls. Pt will benefit from continue skilled IP OT services 5-6x/week as per plan of care. - Goals Timeframe: 7 days Goals: supervision transfers. supervision toileting. supervision LB ADLs. feeding/grooming s/u - Provider Therapist: RAFFAELE Decker/Fifi License Number: [id number] Speech Therapy - Consult Information Patient on Program: Yes Medical Diagnosis: CVA Treatment Diagnosis: moderate receptive/expressive aphasia - Assessment Expressive Language Impairment: Moderate Receptive Language Impairment: Moderate Problem Solving Impairment: Moderate Memory Impairment: Moderate - Plan Assessment: Patient is a 67 yo female presenting to [facility] acute CVA. Ms Ambriz presents with impaired dynamic standing balance, impaired activity tolerance, RUE weakness, impaired coordination RUE/LE, R sided neglect, impaired cognition and expressive aphasia . these defecits impacting pt's ability to complete self care routine , transfers and mobility safely and effectively. patient has made gains with adls . pt able to complete ub adls with supervision and cueing and lb dressing and toilting routine with supervision and cues, pt requires cue to begin task, for sequencing and for completion of task. rec ommeded dme: 3 in 1 commode, shower chair , recommend scheduled caregiver training prior to d/c home. recommend 24/7 supervision upon d/c home and assist with iadls. Pt will benefit from continue skilled IP OT services 5-6x/week as per plan of care. - Provider Therapist: Siomara Rodriguez License Number: [id number] Recreational Therapy - Participation Participation: Participates in Individual and/or Group Sessions - Attendance Attendance: Daily - Activities Leisure Activities: Cards and Games - Socialization Level of Socialization: Initiates/interacts with caregivers but not with peer, Isolate by choice, Responds freely, but does not initiate, Requires 1:1 guidance to respond, Minimal initiation of interaction to request basic needs - Diversional Time Diversional Time: television, music - Assessment Assessment/Plan: Patient is a 67 yo female presenting to [facility] acute CVA. Ms Ambriz presents with impaired dynamic standing balance, impaired activity tolerance, RUE weakness, impaired coordination RUE/LE, R sided neglect, impaired cognition and expressive aphasia . these defecits impacting pt's ability to complete self care routine , transfers and mobility safely and effectively. patient has made gains with adls . pt able to complete ub adls with supervision and cueing and lb dressing and toilting routine with supervision and cues, pt requires cue to begin task, for sequencing and for completion of task. recommeded dme: 3 in 1 commode, shower chair , recommend scheduled caregiver training prior to d/c home. recommend 24/ supervision upon d/c home and assist with iadls. Pt will benefit from continue skilled IP OT services 5-6x/week as per plan of care. - Provider Therapist: Deanna Menjivar, PATROL GUARD #[id number] Nutrition - Current Diet Current Diet/ Supplement/ Feedings: Heart healthy diet - Appetite Percent Meal Consumed: 75-100% - Comments Comments: unable to give teachings to patient, requires frequent verbal cueing & reminders - Assessment/Goals/Time Frame Assessment/Goals/Time Frame: Pt at low nutritional risk. Follow-up due on 03/28/2018 - Provider Provider: Lolita Chew RD Case Management - Psychosocial Assessment Support Systems: Patient with supportive familly. Bri (sister). Patricia Ambriz (daughter)- [phone] Psychological Interventions/Needs: Patient is alert and oriented with forgetfulness and visual impairments causing patient to become tearful Discharge Concerns: Patient with impairments in vision, safety awareness and insight and will require 24 hour supervision Patient/Family Meeting: CM met with patient and rehab team Intervention/Goal/Outcome:: 1. Goal and Plan: 24 hour supervision at home and referral to [facility] for VNS- recommendations discussed with family and verbalized understanding. 2. Caregiver training initiated, daughter to come in for training on 03/21 at 10 am and to call back to arrange for training next week. 3. Tentative discharge date: 03/28. 4. continued emotional support. 5. DME needs and f/u appts to be ordered and scheduled. - Discharge Plan Discharge Plan: Home with services Home Services: [facility] - Provider Provider: MITCHELL Mccabe, HARDWARE TECHNICIAN License Number: [id number] Rehabilitation Plan - Treatment Plan Treatment Plan: Physical Therapy, Occupational Therapy, Speech, Dietary, Patient/Family Education - Recommendation Recommendation: Physical Therapy, Occupational Therapy, Speech, Dietary, Patient/Family Education - Discharge Plan Discharge to: Home (03/28)
--- NOTE | 2018-03-25 13:40 | CP.PCM.PN ---
Subjective - Date & Time of Evaluation Date of Evaluation: 03/25/18 Time of Evaluation: 11:00 - Subjective Subjective: no acute complaints at present Objective - Vital Signs/Intake and Output Vital Signs (last 24 hours): Temp Pulse Resp BP Pulse Ox 96.8 F L 72 18 139/68 100 03/25/18 09:05 03/25/18 09:05 03/25/18 09:05 03/25/18 09:05 03/25/18 09:05 - Medications Medications: Current Medications Amlodipine Besylate (Norvasc) 5 mg PO DAILY [facility] Last Admin: 03/25/18 08:23 Dose: 5 mg Apixaban (Eliquis) 5 mg PO BID [facility]; Protocol Last Admin: 03/25/18 08:23 Dose: 5 mg Aspirin (Ecotrin) 81 mg PO DAILY [facility] Last Admin: 03/25/18 08:23 Dose: 81 mg Atorvastatin Calcium (Lipitor) 80 mg PO HS [facility] Last Admin: 03/24/18 21:00 Dose: 80 mg Citalopram Hydrobromide (Celexa) 20 mg PO DAILY [facility] Last Admin: 03/25/18 08:23 Dose: 20 mg Donepezil HCl (Aricept) 10 mg PO HS [facility] Last Admin: 03/24/18 21:00 Dose: 10 mg Home Med (Patient's Own Medication) 1 unit OU Q12 [facility] Last Admin: 03/25/18 08:30 Dose: 1 unit Home Med (Patient's Own Medication) 1 unit OD BID [facility] Last Admin: 03/25/18 08:25 Dose: 1 unit Levothyroxine Sodium (Synthroid) 100 mcg PO DAILY@0630 [facility] Last Admin: 03/25/18 06:17 Dose: 100 mcg Lisinopril (Zestril) 10 mg PO DAILY [facility] Last Admin: 03/25/18 08:24 Dose: 10 mg Metoprolol Tartrate (Lopressor) 25 mg PO Q12 [facility] Last Admin: 03/25/18 08:24 Dose: 25 mg Pantoprazole Sodium (Protonix Ec Tab) 40 mg PO DAILY [facility] Last Admin: 03/25/18 08:23 Dose: 40 mg - Labs Labs: 03/20/18 05:20 03/20/18 05:20 - Head Exam Head Exam: ATRAUMATIC, NORMAL INSPECTION, NORMOCEPHALIC - Eye Exam Eye Exam: EOMI, Normal appearance, PERRL Pupil Exam: NORMAL ACCOMODATION - ENT Exam ENT Exam: Mucous Membranes Moist, Normal Exam - Neck Exam Neck Exam: Full ROM, Normal Inspection - Respiratory Exam Respiratory Exam: Clear to Ausculation Bilateral, NORMAL BREATHING PATTERN - Cardiovascular Exam Cardiovascular Exam: REGULAR RHYTHM - GI/Abdominal Exam GI & Abdominal Exam: Soft, Normal Bowel Sounds - Rectal Exam Rectal Exam: NORMAL INSPECTION - Exam External exam: NORMAL EXTERNAL EXAM - Extremities Exam Extremities Exam: Full ROM, Normal Capillary Refill, Normal Inspection - Back Exam Back Exam: NORMAL INSPECTION - Neurological Exam Neurological Exam: Alert, Awake Neuro motor strength exam: Left Upper Extremity: 3, Right Upper Extremity: 3, Left Lower Extremity: 3, Right Lower Extremity: 3 - Psychiatric Exam Psychiatric exam: Normal Affect, Normal Mood - Skin Skin Exam: Dry, Intact Assessment and Plan (1) Ischemic stroke Assessment & Plan: pt, ot rec therapy status post team Dc for oct 6 shower chair and commode Status: Acute
--- NOTE | 2018-03-26 00:59 | PN ---
DATE: 03/25/2018 DAILY PROGRESS NOTE SUBJECTIVE: The patient is seen today, 03/25/2018. She is not in any cardiopulmonary distress. The patient is aphasic. PHYSICAL EXAMINATION: VITAL SIGNS: Blood pressure is 139/68, temperature 96.8, respiratory rate 18, and pulse 72. HEENT: Pupils are equal and reactive to light. Normal-appearing mucosa of the conjunctivae, oropharynx, and nasal membrane mucosa. NECK: Supple. No JVD. No carotid bruit. No lymph nodes. No thyromegaly. CHEST AND LUNGS: Bilateral symmetrical expansion. Good air exchange. No rales. No rhonchi. CARDIOVASCULAR SYSTEM: PMI not localized. S1, S2. No additional sounds. ABDOMEN: Normoactive bowel sounds. No tenderness. No organomegaly. No masses. EXTREMITIES: No cyanosis, no clubbing, no edema. CENTRAL NERVOUS SYSTEM: Alert, awake, oriented x2. The patient has aphasia and moves all extremities equally. ASSESSMENT: Cerebrovascular accident, hypertension, and hypercholesterolemia. PLAN: Continue physical therapy, occupational therapy, and current medications including the anticoagulants. Dmitry Fuentes MD
[2018-03-26] MEDS: Levothyroxine 100 MCG TAB PO SCH (06:07)
[2018-03-26] MEDS: SIMBRINZA OD SCH ×2 (08:42→17:03)
[2018-03-26] MEDS: Pantoprazole 40 mg EC Tab PO SCH (08:45)
[2018-03-27] MEDS: Levothyroxine 100 MCG TAB PO SCH (06:24)
--- NOTE | 2018-03-27 07:51 | CP.PCM.CON ---
History of Present Illness - History of Present Illness History of Present Illness: Pt is a 67 year old female admitted to [facility] following a CVA. Med history positive for CVA, See medical record for complete medical history and medications. Social History: pt reported living alone prior to admission, . Pt reported having one daughter and siblings who she is very close with. Pt reported positive relationships, and solid social support. 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 Psych history denied, pt denied a history of alc/sub abuse. Pt reported an active life prior to her CVA. MSE: Pt alert, aphasia interfered with orientation response generation, affect constricted, dysphoria reported, no si no hi ideation, no psychosis. Cognitive strategies reviewed to reduce distress. Dx: Adjustment Dx 7:20-7:40 AM Past Patient History - Past Medical History & Family History Past Medical History?: Yes - Past Social History Smoking Status: Never Smoked - CARDIAC Hx Hypertension: Yes - PULMONARY Hx Respiratory Disorders: No - NEUROLOGICAL HX Cerebrovascular Accident: Yes - HEENT Hx Cataracts: Yes - RENAL Hx Chronic Kidney Disease: No - ENDOCRINE/METABOLIC Other/Comment: Borderline Diabetes - HEMATOLOGICAL/ONCOLOGICAL Hx Cancer: Yes - INTEGUMENTARY Hx Dermatological Problems: No - MUSCULOSKELETAL/RHEUMATOLOGICAL Hx Musculoskeletal Disorders: No Hx Falls: No - GASTROINTESTINAL Hx Gastrointestinal Disorders: No - GENITOURINARY/GYNECOLOGICAL Hx Genitourinary Disorders: No - PSYCHIATRIC Hx Depression: Yes Hx Substance Use: No - SURGICAL HISTORY Hx Surgeries: Yes Hx Thyroidectomy: Yes (2011(Thyroid CA)) - ANESTHESIA Hx Anesthesia: Yes Hx Anesthesia Reactions: No Has any member of the family had a problem w/ anesthesia?: No Meds Allergies/Adverse Reactions: Allergies Allergy/AdvReac Type Severity Reaction Status Date / Time FISH Allergy RASH Verified 03/11/18 23:35 fish oil Allergy RASH Verified 03/11/18 23:35 iodine Allergy RASH Verified 03/11/18 23:35 latex Allergy RASH Verified 03/11/18 23:35 Penicillins Allergy RASH Verified 03/11/18 23:35 - Medications Medications: Current Medications Amlodipine Besylate (Norvasc) 5 mg PO DAILY [facility] Last Admin: 03/26/18 08:44 Dose: 5 mg Apixaban (Eliquis) 5 mg PO BID [facility]; Protocol Last Admin: 03/26/18 17:02 Dose: 5 mg Aspirin (Ecotrin) 81 mg PO DAILY [facility] Last Admin: 03/26/18 08:44 Dose: 81 mg Atorvastatin Calcium (Lipitor) 80 mg PO HS [facility] Last Admin: 03/26/18 21:46 Dose: 80 mg Citalopram Hydrobromide (Celexa) 20 mg PO DAILY [facility] Last Admin: 03/26/18 08:44 Dose: 20 mg Donepezil HCl (Aricept) 10 mg PO HS [facility] Last Admin: 03/26/18 21:46 Dose: 10 mg Home Med (Patient's Own Medication) 1 unit OU Q12 [facility] Last Admin: 03/26/18 21:46 Dose: 1 unit Home Med (Patient's Own Medication) 1 unit OD BID [facility] Last Admin: 03/26/18 17:03 Dose: 1 unit Levothyroxine Sodium (Synthroid) 100 mcg PO DAILY@0630 [facility] Last Admin: 03/27/18 06:24 Dose: 100 mcg Lisinopril (Zestril) 10 mg PO DAILY [facility] Last Admin: 03/26/18 08:43 Dose: 10 mg Metoprolol Tartrate (Lopressor) 25 mg PO Q12 [facility] Last Admin: 03/26/18 21:45 Dose: Not Given Pantoprazole Sodium (Protonix Ec Tab) 40 mg PO DAILY [facility] Last Admin: 03/26/18 08:45 Dose: 40 mg Results - Vital Signs Recent Vital Signs: Last Vital Signs Temp 97.7 F 03/26/18 21:45 Pulse 60 03/26/18 21:45 Resp 20 03/26/18 21:45 BP 119/66 03/26/18 21:45 Pulse Ox 98 03/26/18 21:45 - Labs Result Diagrams: 03/20/18 05:20 03/20/18 05:20
[2018-03-27] MEDS: SIMBRINZA OD SCH ×2 (08:22→17:12)
[2018-03-27] MEDS: Pantoprazole 40 mg EC Tab PO SCH (08:23)
--- NOTE | 2018-03-27 13:17 | CP.PCM.PN ---
Subjective - Date & Time of Evaluation Date of Evaluation: 03/27/18 Time of Evaluation: 13:00 - Subjective Subjective: no acute complaints of armor leg pain Objective - Vital Signs/Intake and Output Vital Signs (last 24 hours): Temp Pulse Resp BP Pulse Ox 97.7 F 60 18 126/65 100 03/27/18 08:21 03/27/18 08:23 03/27/18 08:21 03/27/18 08:23 03/27/18 08:21 - Medications Medications: Current Medications Amlodipine Besylate (Norvasc) 5 mg PO DAILY [facility] Last Admin: 03/27/18 08:23 Dose: 5 mg Apixaban (Eliquis) 5 mg PO BID [facility]; Protocol Last Admin: 03/27/18 08:23 Dose: 5 mg Aspirin (Ecotrin) 81 mg PO DAILY [facility] Last Admin: 03/27/18 08:23 Dose: 81 mg Atorvastatin Calcium (Lipitor) 80 mg PO HS [facility] Last Admin: 03/26/18 21:46 Dose: 80 mg Citalopram Hydrobromide (Celexa) 20 mg PO DAILY [facility] Last Admin: 03/27/18 08:23 Dose: 20 mg Donepezil HCl (Aricept) 10 mg PO HS [facility] Last Admin: 03/26/18 21:46 Dose: 10 mg Home Med (Patient's Own Medication) 1 unit OU Q12 [facility] Last Admin: 03/27/18 08:22 Dose: 1 unit Home Med (Patient's Own Medication) 1 unit OD BID [facility] Last Admin: 03/27/18 08:22 Dose: 1 unit Levothyroxine Sodium (Synthroid) 100 mcg PO DAILY@0630 [facility] Last Admin: 03/27/18 06:24 Dose: 100 mcg Lisinopril (Zestril) 10 mg PO DAILY [facility] Last Admin: 03/27/18 08:23 Dose: 10 mg Metoprolol Tartrate (Lopressor) 25 mg PO Q12 [facility] Last Admin: 03/27/18 08:22 Dose: Not Given Pantoprazole Sodium (Protonix Ec Tab) 40 mg PO DAILY [facility] Last Admin: 03/27/18 08:23 Dose: 40 mg - Labs Labs: 03/20/18 05:20 03/20/18 05:20 - Head Exam Head Exam: ATRAUMATIC, NORMAL INSPECTION, NORMOCEPHALIC - Eye Exam Eye Exam: EOMI, Normal appearance, PERRL Pupil Exam: NORMAL ACCOMODATION - ENT Exam ENT Exam: Mucous Membranes Moist, Normal Exam - Neck Exam Neck Exam: Full ROM, Normal Inspection - Respiratory Exam Respiratory Exam: NORMAL BREATHING PATTERN - Cardiovascular Exam Cardiovascular Exam: REGULAR RHYTHM - GI/Abdominal Exam GI & Abdominal Exam: Soft, Normal Bowel Sounds - Rectal Exam Rectal Exam: NORMAL INSPECTION - Exam External exam: NORMAL EXTERNAL EXAM - Extremities Exam Extremities Exam: Full ROM, Normal Capillary Refill, Normal Inspection - Back Exam Back Exam: NORMAL INSPECTION - Neurological Exam Neurological Exam: Alert, Awake Neuro motor strength exam: Left Upper Extremity: 3, Left Lower Extremity: 3 - Psychiatric Exam Psychiatric exam: Normal Affect, Normal Mood - Skin Skin Exam: Dry, Intact Assessment and Plan (1) Ischemic stroke Assessment & Plan: plan for physical, occupational, rec and speech therapy monitor skin and bowels Status: Acute
--- NOTE | 2018-03-27 14:21 | PN ---
DATE: 03/27/2018 SUBJECTIVE: The patient is seen today, 03/27/2018. PHYSICAL EXAMINATION: GENERAL: She is not in any cardiopulmonary distress. VITAL SIGNS: Blood pressure 126/65, temperature 97.7, respiratory rate 18, and pulse 60. HEENT: Pupils equal, reactive to light. Normal appearing mucosa of the conjunctivae, oropharyngeal, and nasal membrane mucosa. NECK: Supple. No JVD. No carotid bruit. No lymph node. No thyromegaly. CHEST AND LUNGS: Bilateral symmetrical expansion. Good air exchange. No rales. No rhonchi. CARDIOVASCULAR SYSTEM: PMI not localized. S1, S2. No additional sounds. ABDOMEN: Normoactive bowel sounds. No tenderness. No organomegaly. No masses. EXTREMITIES: No cyanosis, no clubbing, no edema. 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 No neurological deficit could be appreciated. ASSESSMENT: 1. Cerebrovascular accident on the left parietofrontal lobe. 2. Possible right-sided cut of the visual field. 3. Hypertension. 4. Hypercholesterolemia. 5. Hypothyroidism. PLAN: Continue current medication, physical therapy, and the patient is for consultation by Neuro-Ophthalmology. Dmitry Fuentes MD
[2018-03-27 20:02] VITALS: RESP 20; O2SAT 99
[2018-03-28] MEDS: Levothyroxine 100 MCG TAB PO SCH (06:01)
[2018-03-28 08:06] VITALS: PULSE 66; TEMP 96.8
[2018-03-28] MEDS: SIMBRINZA OD SCH (08:34)
[2018-03-28] MEDS: Pantoprazole 40 mg EC Tab PO SCH (08:36)
[2018-03-28 08:37] VITALS: BP 128/76
== END 2018-03-28 13:27 | disposition home health service (06) | DRG 57 ==
PROVIDERS: ADMIT Internal Medicine; ATTEND Internal Medicine
PROC: F07M6FZ Therapeutic Exercise Treatment of Musculoskeletal System - Whole Body using Assistive, Adaptive, Supportive or Protective Equipment (ICD-10-PCS; principal; 2018-03-12)
PROC: F08Z4FZ Home Management Treatment using Assistive, Adaptive, Supportive or Protective Equipment (ICD-10-PCS; 2018-03-12)
PROC: F06Z6ZZ Communicative/Cognitive Integration Skills Treatment (ICD-10-PCS; 2018-03-12)
DX: I69.320 Aphasia following cerebral infarction (principal); Q21.1 Atrial septal defect; I69.322 Dysarthria following cerebral infarction; Z79.01 Long term (current) use of anticoagulants; Z79.02 Long term (current) use of antithrombotics/antiplatelets; E89.0 Postprocedural hypothyroidism; Z85.850 Personal history of malignant neoplasm of thyroid; F32.9 Major depressive disorder, single episode, unspecified; H26.9 Unspecified cataract; R73.03 Prediabetes; E78.00 Pure hypercholesterolemia, unspecified; E78.5 Hyperlipidemia, unspecified; F03.90 Unspecified dementia, unspecified severity, without behavioral disturbance, psychotic disturbance, mood disturbance, and anxiety; I10 Essential (primary) hypertension; I25.10 Atherosclerotic heart disease of native coronary artery without angina pectoris; I67.2 Cerebral atherosclerosis; Z91.041 Radiographic dye allergy status; Z91.040 Latex allergy status; Z88.0 Allergy status to penicillin; Z91.013 Allergy to seafood

== ENCOUNTER 2018-07-16 12:58 | Inpatient (IN) | payer MEDICARE, OTHER ==
[2018-07-16 15:38] VITALS: BMI 24.4
[2018-07-17] MEDS: Levothyroxine 100 MCG TAB PO SCH (06:19)
[2018-07-17 06:26] LABS: BASO % 0.7 % (0.0-2.0); EOS # 0.2 K/uL (0.0-0.7); EOS % 3.7 % (0.0-4.0); HEMOGLOBIN 9.1 g/dL (12.0-16.0); LYMPH # 1.6 K/uL (1.0-4.3); LYMPH % 32.9 % (20.0-40.0); MEAN CELL VOLUME 83.9 fl (81.0-99.0); MEAN CORPUSCULAR HEMOGLOBIN 27.3 pg (27.0-31.0); MEAN CORPUSCULAR HGB CONC 32.5 g/dL (33.0-37.0); MEAN PLATELET VOLUME 8.5 fl (7.2-11.7); MONO # 0.5 K/uL (0.0-0.8); MONO % 10.5 % (0.0-10.0); NEUT # 2.6 K/uL (1.8-7.0); NEUT % 52.2 % (50.0-75.0); NRBC % 0.1 % (0.0-0.0); RBC 3.32 Mil/uL (3.80-5.20); RED CELL DISTRIBUTION WIDTH 15.6 % (11.5-14.5)
[2018-07-17 06:44] LABS: ALBUMIN 3.8 g/dL (3.5-5.0); CALCIUM 9.2 mg/dL (8.4-10.2)
[2018-07-17] MEDS: BRINZOLAMIDE OD SCH ×2 (08:41→17:16)
[2018-07-17] MEDS: BRIMONIDINE TART OD SCH ×2 (08:41→17:16)
[2018-07-17] MEDS: Pantoprazole 40 mg Susp UD PO SCH (08:42)
[2018-07-17] MEDS ORDERED: Brimonidine 0.2% 50 DROP/5 ML BOTTLE OU SCH (09:00)
[2018-07-17] MEDS ORDERED: Dorzolamide 2% Ophth Soln OD SCH (09:00)
[2018-07-17] MEDS: BRIMONIDINE OU SCH ×2 (10:00→21:29)
[2018-07-17] MEDS: TIMOLOL OU SCH ×2 (10:00→21:29)
--- NOTE | 2018-07-17 14:59 | PCM.OPOC ---
Physiatry Overall Plan of Care - Overall Plan of Care Estimated Length of Stay in Weeks: 3 Rehab Impairment: Mobility, Gait, Cognition, Balance, Coordination Etiologic Diagnosis: Cerebrovascular Accident Rehab/Medical Prognosis: Fair - Anticipated Interventions Physical Therapy:: Yes Occupational Therapy:: Yes Speech Therapy:: Yes Recreational Therapy:: Yes - Therapy Goals Bed Mobility: Independent Ambulation: Supervision Functional Positional Changes:: Independent - Functional Outcomes Functional Outcomes: fair - Discharge Plan Identification of Barriers to Discharge: Cognition Discharge Destination: Home
--- NOTE | 2018-07-17 15:03 | CP.PCM.CON ---
History of Present Illness - History of Present Illness History of Present Illness: 68 year old female known tomkaela cole as well, with CVa admitted for acute rehab,Htn , thyroid Ca hx of cva Review of Systems - Musculoskeletal Musculoskeletal: Muscle Weakness Past Patient History - Past Medical History & Family History Past Medical History?: Yes - Past Social History Smoking Status: Never Smoked - CARDIAC Hx Cardiac Disorders: Yes Hx Hypertension: Yes Other/Comment: - Heart attack. - 02/10/2018: s/p loop recorder ([employer]). - Hyperlipidemia - PULMONARY Hx Respiratory Disorders: No - NEUROLOGICAL Hx Neurological Disorder: Yes HX Cerebrovascular Accident: Yes (07/13/2018, CVA with mild residual deficits (2016, 01/2018, & 02/2018)) Hx Dementia: Yes - HEENT Hx Cataracts: Yes - RENAL Hx Chronic Kidney Disease: No - ENDOCRINE/METABOLIC Hx Endocrine Disorders: Yes Other/Comment: - Borderline diabetes - HEMATOLOGICAL/ONCOLOGICAL Hx AIDS: No Hx Human Immunodeficiency Virus (HIV): No - INTEGUMENTARY Hx Dermatological Problems: No - MUSCULOSKELETAL/RHEUMATOLOGICAL Hx Falls: Yes - GASTROINTESTINAL Hx Gastrointestinal Disorders: No - GENITOURINARY/GYNECOLOGICAL Hx Genitourinary Disorders: No - PSYCHIATRIC Hx Substance Use: No - SURGICAL HISTORY Hx Surgeries: Yes Hx Cataract Extraction: Yes (2017) Hx Thyroidectomy: Yes (2013) Other/Comment: - Carpal tunner surgery more than 10 years ago. - Loop recorder 2018 - ANESTHESIA Hx Anesthesia: Yes Hx Anesthesia Reactions: No Hx Malignant Hyperthermia: No Has any member of the family had a problem w/ anesthesia?: No Meds Allergies/Adverse Reactions: Allergies Allergy/AdvReac Type Severity Reaction Status Date / Time FISH Allergy RASH Verified 07/16/18 20:45 fish oil Allergy RASH Verified 07/16/18 20:45 iodine Allergy RASH Verified 07/16/18 20:45 latex Allergy RASH Verified 07/16/18 20:45 Penicillins Allergy RASH Verified 07/16/18 20:45 - Medications Medications: Current Medications Amlodipine Besylate (Norvasc) 2.5 mg PO DAILY [facility] Last Admin: 07/17/18 08:40 Dose: 2.5 mg Apixaban (Eliquis) 2.5 mg PO BID [facility]; Protocol Aspirin (Aspirin Chewable) 81 mg PO DAILY [facility] Last Admin: 07/17/18 08:40 Dose: 81 mg Atorvastatin Calcium (Lipitor) 80 mg PO [facility] Citalopram Hydrobromide (Celexa) 20 mg PO DAILY [facility] Last Admin: 07/17/18 08:41 Dose: 20 mg Donepezil HCl (Aricept) 10 mg PO HS [facility] Last Admin: 07/16/18 23:15 Dose: 10 mg Home Med (Patient's Own Medication) 1 unit OU Q12 [facility] Home Med (Patient's Own Medication) 1 unit OD BID [facility] Last Admin: 07/17/18 08:41 Dose: 1 unit Levothyroxine Sodium (Synthroid) 100 mcg PO 0600 [facility] Last Admin: 07/17/18 06:19 Dose: 100 mcg Losartan Potassium (Cozaar) 25 mg PO Q12H [facility] Metoprolol Tartrate (Lopressor) 50 mg PO BID [facility] Last Admin: 07/17/18 08:41 Dose: 50 mg Pantoprazole Sodium (Protonix Susp) 40 mg PO DAILY [facility] Last Admin: 07/17/18 08:42 Dose: 40 mg Physical Exam - Constitutional Appears: Well - Head Exam Head Exam: ATRAUMATIC, NORMAL INSPECTION, NORMOCEPHALIC - Eye Exam Eye Exam: EOMI, Normal appearance, PERRL Pupil Exam: NORMAL ACCOMODATION - ENT Exam ENT Exam: Mucous Membranes Moist, Normal Exam - Neck Exam Neck exam: Positive for: Normal Inspection - Respiratory Exam Respiratory Exam: Clear to Auscultation Bilateral, NORMAL BREATHING PATTERN - Cardiovascular Exam Cardiovascular Exam: REGULAR RHYTHM - GI/Abdominal Exam GI & Abdominal Exam: Normal Bowel Sounds - Rectal Exam Rectal Exam: NORMAL INSPECTION - Exam External exam: NORMAL EXTERNAL EXAM - Extremities Exam Extremities exam: Positive for: normal inspection - Back Exam Back exam: NORMAL INSPECTION Additional comments: arm and leg weakness - Neurological Exam Neurological exam: Alert - Psychiatric Exam Psychiatric exam: Normal Affect, Normal Mood - Skin Skin Exam: Dry, Intact Results - Vital Signs Recent Vital Signs: Last Vital Signs Temp 97.5 F L 07/17/18 07:35 Pulse 53 L 07/17/18 08:50 Resp 18 07/17/18 07:35 BP 120/60 07/17/18 08:41 Pulse Ox 97 07/17/18 07:35 - Labs Result Diagrams: 07/17/18 05:20 07/17/18 05:20 Labs: Laboratory Results - last 24 hr 07/17/18 07/17/18 05:20 05:20 WBC 5.0 RBC 3.32 L Hgb 9.1 L Hct 27.9 L MCV 83.9 MCH 27.3 MCHC 32.5 L RDW 15.6 H Plt Count 325 MPV 8.5 Neut % (Auto) 52.2 Lymph % (Auto) 32.9 Maries % (Auto) 10.5 H Eos % (Auto) 3.7 Baso % (Auto) 0.7 Neut # (Auto) 2.6 Lymph # (Auto) 1.6 Maries # (Auto) 0.5 Eos # (Auto) 0.2 Baso # (Auto) 0.0 Sodium 139 Potassium 4.0 Chloride 103 Carbon Dioxide 27 Anion Gap 13 BUN 11 Creatinine 1.2 Est GFR ( Amer) 54 Est GFR (Non-Af Amer) 45 Random Glucose 104 Calcium 9.2 Total Bilirubin 0.7 AST 23 ALT 18 Alkaline Phosphatase 76 Total Protein 7.7 Albumin 3.8 Globulin 3.9 Albumin/Globulin Ratio 1.0 Assessment & Plan (1) Ischemic stroke Assessment and Plan: CVa plan for physical, occupational rec and speech therapy Plan for Physical, occupational, speech and rec therapy. To write for overall plan of care Status: Acute
--- NOTE | 2018-07-17 15:09 | CP.PCM.PN ---
Subjective - Date & Time of Evaluation Date of Evaluation: 07/17/18 Time of Evaluation: 12:00 - Subjective Subjective: no acute complaints at present, feeling fine Objective - Vital Signs/Intake and Output Vital Signs (last 24 hours): Temp Pulse Resp BP Pulse Ox 97.5 F L 53 L 18 120/60 97 07/17/18 07:35 07/17/18 08:50 07/17/18 07:35 07/17/18 08:41 07/17/18 07:35 - Medications Medications: Current Medications Amlodipine Besylate (Norvasc) 2.5 mg PO DAILY [facility] Last Admin: 07/17/18 08:40 Dose: 2.5 mg Apixaban (Eliquis) 2.5 mg PO BID [facility]; Protocol Aspirin (Aspirin Chewable) 81 mg PO DAILY [facility] Last Admin: 07/17/18 08:40 Dose: 81 mg Atorvastatin Calcium (Lipitor) 80 mg PO [facility] Citalopram Hydrobromide (Celexa) 20 mg PO DAILY [facility] Last Admin: 07/17/18 08:41 Dose: 20 mg Donepezil HCl (Aricept) 10 mg PO HS [facility] Last Admin: 07/16/18 23:15 Dose: 10 mg Home Med (Patient's Own Medication) 1 unit OU Q12 [facility] Home Med (Patient's Own Medication) 1 unit OD BID [facility] Last Admin: 07/17/18 08:41 Dose: 1 unit Levothyroxine Sodium (Synthroid) 100 mcg PO 0600 [facility] Last Admin: 07/17/18 06:19 Dose: 100 mcg Losartan Potassium (Cozaar) 25 mg PO Q12H [facility] Metoprolol Tartrate (Lopressor) 50 mg PO BID [facility] Last Admin: 07/17/18 08:41 Dose: 50 mg Pantoprazole Sodium (Protonix Susp) 40 mg PO DAILY [facility] Last Admin: 07/17/18 08:42 Dose: 40 mg - Labs Labs: 07/17/18 05:20 07/17/18 05:20 - Constitutional Appears: Well - Head Exam Head Exam: ATRAUMATIC, NORMAL INSPECTION, NORMOCEPHALIC - Eye Exam Eye Exam: EOMI, Normal appearance, PERRL Pupil Exam: NORMAL ACCOMODATION - ENT Exam ENT Exam: Mucous Membranes Moist, Normal Exam - Neck Exam Neck Exam: Full ROM, Normal Inspection - Respiratory Exam Respiratory Exam: NORMAL BREATHING PATTERN - Cardiovascular Exam Cardiovascular Exam: REGULAR RHYTHM - GI/Abdominal Exam GI & Abdominal Exam: Soft, Normal Bowel Sounds - Rectal Exam Rectal Exam: NORMAL INSPECTION - Exam External exam: NORMAL EXTERNAL EXAM - Extremities Exam Extremities Exam: Full ROM, Normal Capillary Refill - Back Exam Back Exam: NORMAL INSPECTION - Neurological Exam Neurological Exam: Alert, Awake Neuro motor strength exam: Left Upper Extremity: 3, Right Upper Extremity: 3, Left Lower Extremity: 3, Right Lower Extremity: 3 Additional comments: arm and leg weakness - Psychiatric Exam Psychiatric exam: Normal Affect, Normal Mood - Skin Skin Exam: Dry, Intact Assessment and Plan (1) Ischemic stroke Assessment & Plan: History of CVa, throid Ca plan for pt, ot rec and st. electim stim and orders to go out side with therapists Status: Acute
--- NOTE | 2018-07-17 23:08 | HP ---
HISTORY OF PRESENT ILLNESS: The patient is seen today, 07/17/2018. She is a 68-year-old female who is known to me from previous admission to acute rehabilitation. The patient was admitted to acute rehabilitation at [facility] after sustaining a new left frontal infarction. The patient has previous history of multiple bilateral cerebral and cerebellar infarctions with residual deficits in the form of visual field defects as well as dysarthria. The patient was evaluated and she is having also cognitive impairment and she is a poor historian, so review of systems is not reliable. ALLERGIES: Positive for fish, fish oil, iodine, latex, penicillin. SOCIAL HISTORY: No history of smoking, EtOH or substance abuse. FAMILY HISTORY: Not contributory. PAST MEDICAL HISTORY: Multiple CVAs, hypertension, hypercholesterolemia, hypothyroidism. PHYSICAL EXAMINATION: GENERAL: The patient is in bed, not in any cardiopulmonary distress. VITAL SIGNS: Blood pressure 120/80, temperature 97.7, respiratory rate 20, and pulse 62. HEENT: Pupils equal, reactive to light. Normal-appearing mucosa of the conjunctivae, oropharynx and nasal membrane mucosa. NECK: Supple. No JVD. No carotid bruit. No lymph node. No thyromegaly. CHEST AND LUNGS: Bilateral symmetrical expansion. Good air exchange. No rales, no rhonchi. CARDIOVASCULAR SYSTEM: PMI not localized. S1, S2. No additional sounds. ABDOMEN: Normoactive bowel sounds. No tenderness. No organomegaly. No masses. EXTREMITIES: No cyanosis, no clubbing, no edema. DIAL MAKER: The patient is awake and alert. She is oriented to person and place and disoriented to time. The patient has dysarthria and she has bitemporal visual field defects. ASSESSMENT: Multiple cerebrovascular accidents, dysfunctional gait, dysarthria, visual field defects. PLAN: Continue current medications including statins and antiplatelets. Start the patient on occupational therapy and physical therapy. Resume the patient's home medications as planned. Dmitry Fuentes MD
[2018-07-18] MEDS: Levothyroxine 100 MCG TAB PO SCH (06:25)
[2018-07-18] MEDS: Pantoprazole 40 mg Susp UD PO SCH (08:24)
[2018-07-18] MEDS: BRINZOLAMIDE OD SCH ×2 (08:27→18:12)
[2018-07-18] MEDS: BRIMONIDINE TART OD SCH ×2 (08:27→18:12)
[2018-07-18] MEDS: BRIMONIDINE OU SCH ×2 (08:27→21:32)
[2018-07-18] MEDS: TIMOLOL OU SCH ×2 (08:27→21:32)
[2018-07-19] MEDS: Levothyroxine 100 MCG TAB PO SCH (05:53)
[2018-07-19] MEDS: Pantoprazole 40 mg Susp UD PO SCH (08:46)
[2018-07-19] MEDS: TIMOLOL OU SCH ×2 (08:47→21:43)
[2018-07-19] MEDS: BRIMONIDINE TART OD SCH ×2 (08:47→17:22)
[2018-07-19] MEDS: BRINZOLAMIDE OD SCH ×2 (08:47→17:22)
[2018-07-19] MEDS: BRIMONIDINE OU SCH ×2 (08:47→21:43)
[2018-07-20] MEDS: Levothyroxine 100 MCG TAB PO SCH (05:17)
[2018-07-20] MEDS: Pantoprazole 40 mg Susp UD PO SCH (08:30)
[2018-07-20] MEDS: BRINZOLAMIDE OD SCH ×2 (08:31→17:44)
[2018-07-20] MEDS: BRIMONIDINE TART OD SCH ×2 (08:31→17:44)
[2018-07-20] MEDS: BRIMONIDINE OU SCH ×2 (08:32→21:43)
[2018-07-20] MEDS: TIMOLOL OU SCH ×2 (08:32→21:43)
--- NOTE | 2018-07-21 00:36 | PN ---
DATE: 07/20/2018 SUBJECTIVE: The patient is seen today, 07/20/2018. She is cooperative with physical therapy and occupational therapy. OBJECTIVE: VITAL SIGNS: Blood pressure 141/73, temperature 98.1, respiratory rate 20, and pulse 60. HEENT: Pupils equal and reactive to light. Normal-appearing mucosa of the conjunctivae, oropharynx, and nasal membrane mucosa. NECK: Supple. No JVD. No carotid bruit. No lymph node. No thyromegaly. CHEST AND LUNGS: Bilateral symmetrical expansion. Good air exchange. No rales. No rhonchi. CARDIOVASCULAR SYSTEM: PMI not localized. S1, S2. No additional sounds. ABDOMEN: Normoactive bowel sounds. No tenderness. No organomegaly. No masses. EXTREMITIES: No cyanosis, no clubbing, no edema. CENTRAL NERVOUS SYSTEM: The patient is awake, oriented x2. She is disoriented to time but she is oriented to place and person. The patient has visual field defects as well as dysarthria. ASSESSMENT: 1. New cerebrovascular accident, left frontal. 2. Multiple old cerebrovascular accidents. 3. Hypertension. 4. Hypercholesterolemia. PLAN: Continue current medications and antiplatelets. Continue physical therapy and occupational therapy. Dmitry Fuentes MD
[2018-07-21] MEDS: Levothyroxine 100 MCG TAB PO SCH (05:52)
[2018-07-21] MEDS: BRINZOLAMIDE OD SCH ×2 (08:39→16:23)
[2018-07-21] MEDS: TIMOLOL OU SCH ×2 (08:39→21:49)
[2018-07-21] MEDS: BRIMONIDINE OU SCH ×2 (08:39→21:49)
[2018-07-21] MEDS: BRIMONIDINE TART OD SCH ×2 (08:39→16:23)
[2018-07-21] MEDS: Pantoprazole 40 mg Susp UD PO SCH (08:40)
--- NOTE | 2018-07-21 15:08 | CP.PCM.PN ---
Subjective - Date & Time of Evaluation Date of Evaluation: 07/18/18 Time of Evaluation: 12:00 - Subjective Subjective: no acute complaints at present Objective - Vital Signs/Intake and Output Vital Signs (last 24 hours): Temp Pulse Resp BP Pulse Ox 97.0 F L 65 18 146/88 99 07/21/18 08:40 07/21/18 08:40 07/21/18 08:40 07/21/18 08:40 07/21/18 08:40 - Medications Medications: Current Medications Amlodipine Besylate (Norvasc) 2.5 mg PO DAILY [facility] Last Admin: 07/21/18 08:39 Dose: 2.5 mg Apixaban (Eliquis) 2.5 mg PO BID [facility]; Protocol Last Admin: 07/21/18 08:38 Dose: 2.5 mg Aspirin (Aspirin Chewable) 81 mg PO DAILY [facility] Last Admin: 07/21/18 08:38 Dose: 81 mg Atorvastatin Calcium (Lipitor) 80 mg PO HS [facility] Last Admin: 07/20/18 21:43 Dose: 80 mg Citalopram Hydrobromide (Celexa) 20 mg PO DAILY [facility] Last Admin: 07/21/18 08:40 Dose: 20 mg Donepezil HCl (Aricept) 10 mg PO HS [facility] Last Admin: 07/20/18 21:42 Dose: 10 mg Home Med (Patient's Own Medication) 1 unit OU Q12 [facility] Last Admin: 07/21/18 08:39 Dose: 1 unit Home Med (Patient's Own Medication) 1 unit OD BID [facility] Last Admin: 07/21/18 08:39 Dose: 1 unit Levothyroxine Sodium (Synthroid) 100 mcg PO 0600 [facility] Last Admin: 07/21/18 05:52 Dose: 100 mcg Losartan Potassium (Cozaar) 25 mg PO Q12H [facility] Last Admin: 07/21/18 08:38 Dose: 25 mg Metoprolol Tartrate (Lopressor) 50 mg PO BID [facility] Last Admin: 07/21/18 08:38 Dose: 50 mg Pantoprazole Sodium (Protonix Susp) 40 mg PO DAILY [facility] Last Admin: 07/21/18 08:40 Dose: 40 mg - Labs Labs: 07/17/18 05:20 07/17/18 05:20 - Constitutional Appears: Well - Head Exam Head Exam: ATRAUMATIC, NORMAL INSPECTION, NORMOCEPHALIC - Eye Exam Eye Exam: EOMI, Normal appearance, PERRL Pupil Exam: NORMAL ACCOMODATION - ENT Exam ENT Exam: Mucous Membranes Moist, Normal Exam - Neck Exam Neck Exam: Full ROM, Normal Inspection - Respiratory Exam Respiratory Exam: Clear to Ausculation Bilateral, NORMAL BREATHING PATTERN - Cardiovascular Exam Cardiovascular Exam: REGULAR RHYTHM - GI/Abdominal Exam GI & Abdominal Exam: Soft, Normal Bowel Sounds - Rectal Exam Rectal Exam: NORMAL INSPECTION - Exam External exam: NORMAL EXTERNAL EXAM - Extremities Exam Extremities Exam: Full ROM, Normal Capillary Refill - Back Exam Back Exam: NORMAL INSPECTION - Neurological Exam Neurological Exam: Alert, Awake Neuro motor strength exam: Left Upper Extremity: 3, Right Upper Extremity: 3, Left Lower Extremity: 3, Right Lower Extremity: 3 - Psychiatric Exam Psychiatric exam: Normal Affect, Normal Mood - Skin Skin Exam: Dry, Intact Assessment and Plan (1) Ischemic stroke Assessment & Plan: plan for physical, occupational, rec and speech therapy program Status: Acute
--- NOTE | 2018-07-21 15:10 | CP.PCM.PN ---
Subjective - Date & Time of Evaluation Date of Evaluation: 07/21/18 Time of Evaluation: 13:00 - Subjective Subjective: patient is sitting in chair with family, no complaints of pain Objective - Vital Signs/Intake and Output Vital Signs (last 24 hours): Temp Pulse Resp BP Pulse Ox 97.0 F L 65 18 146/88 99 07/21/18 08:40 07/21/18 08:40 07/21/18 08:40 07/21/18 08:40 07/21/18 08:40 - Medications Medications: Current Medications Amlodipine Besylate (Norvasc) 2.5 mg PO DAILY [facility] Last Admin: 07/21/18 08:39 Dose: 2.5 mg Apixaban (Eliquis) 2.5 mg PO BID [facility]; Protocol Last Admin: 07/21/18 08:38 Dose: 2.5 mg Aspirin (Aspirin Chewable) 81 mg PO DAILY [facility] Last Admin: 07/21/18 08:38 Dose: 81 mg Atorvastatin Calcium (Lipitor) 80 mg PO HS [facility] Last Admin: 07/20/18 21:43 Dose: 80 mg Citalopram Hydrobromide (Celexa) 20 mg PO DAILY [facility] Last Admin: 07/21/18 08:40 Dose: 20 mg Donepezil HCl (Aricept) 10 mg PO HS [facility] Last Admin: 07/20/18 21:42 Dose: 10 mg Home Med (Patient's Own Medication) 1 unit OU Q12 [facility] Last Admin: 07/21/18 08:39 Dose: 1 unit Home Med (Patient's Own Medication) 1 unit OD BID [facility] Last Admin: 07/21/18 08:39 Dose: 1 unit Levothyroxine Sodium (Synthroid) 100 mcg PO 0600 [facility] Last Admin: 07/21/18 05:52 Dose: 100 mcg Losartan Potassium (Cozaar) 25 mg PO Q12H [facility] Last Admin: 07/21/18 08:38 Dose: 25 mg Metoprolol Tartrate (Lopressor) 50 mg PO BID [facility] Last Admin: 07/21/18 08:38 Dose: 50 mg Pantoprazole Sodium (Protonix Susp) 40 mg PO DAILY [facility] Last Admin: 07/21/18 08:40 Dose: 40 mg - Labs Labs: 07/17/18 05:20 07/17/18 05:20 - Constitutional Appears: Well - Head Exam Head Exam: ATRAUMATIC, NORMAL INSPECTION, NORMOCEPHALIC - Eye Exam Eye Exam: EOMI, Normal appearance, PERRL Pupil Exam: NORMAL ACCOMODATION - ENT Exam ENT Exam: Mucous Membranes Moist, Normal Exam - Neck Exam Neck Exam: Full ROM, Normal Inspection - Respiratory Exam Respiratory Exam: Clear to Ausculation Bilateral, NORMAL BREATHING PATTERN - Cardiovascular Exam Cardiovascular Exam: REGULAR RHYTHM - GI/Abdominal Exam GI & Abdominal Exam: Soft, Normal Bowel Sounds - Rectal Exam Rectal Exam: NORMAL INSPECTION - Exam External exam: NORMAL EXTERNAL EXAM - Extremities Exam Extremities Exam: Full ROM, Normal Capillary Refill, Normal Inspection - Back Exam Back Exam: NORMAL INSPECTION - Neurological Exam Neurological Exam: Alert, Awake Neuro motor strength exam: Left Upper Extremity: 3, Right Upper Extremity: 3, Left Lower Extremity: 3, Right Lower Extremity: 3 - Psychiatric Exam Psychiatric exam: Normal Affect, Normal Mood - Skin Skin Exam: Dry Assessment and Plan (1) Ischemic stroke Assessment & Plan: plan for team conference tomorrow to discuss Dc planning and equipment eval Status: Acute
[2018-07-22] MEDS: Levothyroxine 100 MCG TAB PO SCH (05:47)
[2018-07-22] MEDS: Pantoprazole 40 mg Susp UD PO SCH (08:18)
[2018-07-22] MEDS: BRIMONIDINE TART OD SCH ×2 (08:19→16:42)
[2018-07-22] MEDS: TIMOLOL OU SCH ×2 (08:19→21:28)
[2018-07-22] MEDS: BRIMONIDINE OU SCH ×2 (08:19→21:28)
[2018-07-22] MEDS: BRINZOLAMIDE OD SCH ×2 (08:19→16:42)
--- NOTE | 2018-07-22 12:10 | PCM.PSYTMC ---
Acute Rehab Team Conference - - Vital Signs: Vital Signs (Last 8 Hours): Vital Signs 07/22/18 07/22/18 07/22/18 08:18 08:42 09:09 Temperature 97.5 F L Pulse Rate 56 L 63 56 L Respiratory 19 Rate Blood Pressure 123/66 O2 Sat by Pulse 99 Oximetry Pain: 0 Physical Therapy - Bed Mobility Bed Mobility: Supervision, Verbal Cues - Transfers Wheelchair to Mat: Supervision, Verbal Cues Sit to Stand: Supervision, Verbal Cues - Ambulation Level of Assistance: Supervision, Verbal Cues Distance (ft.): 200 Assistive Devices: N/A - Stair Negotiation Stairs: Level of Assistance: Verbal Cues, Contact Guard Number of Stairs: 12 Handrails: Left Stairs: Assistive Devices: Left Handrail - Standing Balance Static Stand: Supervision - Pain Pain (assessed during therapy session): 0 - Insight/Carryover Insight/Carryover: Fair - Patient/Family Education Comment: CVA recovery, safety, POC, d/c recommendations - Assessment/Plan Assessment: Pt requires S for bed mobility , transfers, and ambulation; requires CGA for stair negoitaiton. pts functional independence limited by decreased attention to R side, visual impairments, and cognition. Pt will continue to beneift from skilled PT interventions to address deficits, reduce fall risk, and maximize functional independence. - Goals Timeframe: 2 weeks Goals: Sit < > supine mod I. Functional transfers (I). Pt will ambulate 500 ft without AD and distant Supervision. Pt will ascend/descend flight of stairs with one handrail and distant supevision - Provider Physical Therapist:: Hollie Husain License Number:: [id number] Occupational Therapy - Arousal/Attention/Orientation Level of Consciousness: Awake, Alert, Forgetful, Confused Patient Orientation: Person, Place Assessment Comment: +expressive aphasia - ADL/IADL Self Feeding: Set-up Help Grooming: Set-up Help Bathing-Upper Ext: Supervision Bathing-Lower Ext: Supervision, Contact Guard Dressing-Upper Ext: Supervision Dressing-Lower Ext: Supervision, Minimal Assistance Comment: patient does not use AD - Sitting Balance Static Sitting: Independent without upper extremity support Dynamic Sitting: Requires supervision - Transfers Wheelchair to Bed Transfers: Supervision, Verbal Cues, Contact Guard Toilet Transfers: Supervision, Verbal Cues, Contact Guard Comment: verbal cues to negiotiate/attend to objects on the R 2' visual field loss - Wheelchair Management Level of Assistance: Minimal Assistance Distance (ft.): 150 - Upper Extremity Status Right Upper Extremity Comment: AROM WFLs. strength 4+/5. +decreased coordination Left Upper Extremity Comment: AROM WFLs. strength 4+/5 - Pain Pain (assessed during therapy session): 0 - Insight/Carryover Insight/Carryover: Fair - Patient/Family Education Comment: CVA recovery, role of OT, goals of therapy, therapy schedule, plan of care, progress in therapy - Assessment/Plan Assessment: Pt is a 68 yo f who presents to [facility] s/p acute CVA . PREACAUTIONS:FALLS, CARDIAC, SEIZURE, ASPIRATION PRECAUTIONS, POOR SAFETY AWARENESS/POOR COGNITION. patient presents with impaired dynamic standing balance/unsteadiness on feet, impaired act tolerance, R visual field loss from previous CVA, impaired gross/fm coordination RUE, impaired cognition, expressive apahsia. Ms Ambriz is currently able to complete ub adls with s/u/supervision, lb adls with cs/cga, transfers/mobility with cs/cga w/o an ad. patient requires moderate cueing to compensate for R visual loss acquired from an old cva. Recommend positoning objects to the L side of the patient to increase visibility as well as place items on bright colors to increase contrast as pt is unable to compensate for field loss 2' poor cognition. These afo rementioned defecits impact pt's ability to complete adls, transfers and mobility safely and effectively. recommend d/c home with / Supervision 2' visual and cognitive defecits - Goals Timeframe: 1 week Comment: supervision transfers/mobility. mod I for ub adls. supervision lb adls. supervision toileting routine. supervision tub/shower transfer - Provider Occupational Therapist:: Sandy Mccabe License Number: [id number] Speech Therapy - Consult Information Patient on Program: Yes Medical Diagnosis: CVA Treatment Diagnosis: -moderate receptive/expressive aphasia. -mild dysphagia - Assessment Expressive Language Impairment: Moderate Receptive Language Impairment: Moderate Dysphagia/Swallowing Impairment: Mild - Plan Assessment: Nay Ambriz presents with 1.) mild oral dysphagia characterized by prolonged mastication and decreased bolus formation for finely chopped solids; no overt s/s of aspiration noted with any consistencies tested; and 2.) moderate receptive/expressive aphasia (please see IE completed 07/20/18) characterized by impaired ability to answer more complex questions and follow 2+ step directions, impaired word finding and sentence formation with frequent phonemic and semantic paraphasias as well as difficulty sequencing phonemes for multisyllabic words, and impaired oral reading and written expression for simple tasks (i.e. pt's name), all negatively impacting pt's communicative e ffectiveness. Recommend maintenance of finely chopped textures and thin liquids. Pt would benefit from speech tx for improved communicative effectiveness and dysphagia tx for diet tolerance and advancement as appropriate. Plan: Continue Dysphagia Therapy, Continue Speech/Language Therapy Frequency: 3-5 times per week Duration: 1 week Goals/Timeframe: Please see progress note and speech/lang IE completed 07/20/18 for updated goals/POC Recommendations: Continue speech and dysphagia tx 3-5x/week - Provider Therapist: Siomara Rodriguez License Number: [id number] Recreational Therapy - Participation Participation: Participates in Individual and/or Group Sessions - Attendance Attendance: 3-5 times per week - Activities Leisure Activities: Cards and Games - Socialization Level of Socialization: Initiates/interacts with caregivers but not with peer, Isolate by choice, Responds freely, but does not initiate, Requires 1:1 guidance to respond, Minimal initiation of interaction to request basic needs - Diversional Time Diversional Time: television - Assessment Assessment/Plan: Pt is agreeable to participate in recreation therapy sessions following encouragement. Pt has participated in modified henry card task and puzzle tasks. Pt requires max A with all leisure tasks 2' visual deficits and expressive aphasia. Pt requires objects to be placed to the R side and requires auditory cues such as tapping on table or tactile cues of hand over-hand assist for pt to visually scan to the specific area. Pt presents with decrease carryover of task rules and decrease command following. Pt will continue to benefit from participating in recreation therapy sessions; however, visual deficits are barrier to participation in tasks. Problems Currently Limiting Participation: expressive aphasia, forgetful, visual deficits, decrease activity tolerance level, decrease arousal level Goals and Time Frame: Pt will be encouraged to participate in 1:1 and group recreation therapy sessions to improve word finding, command following, direction following, leisure awareness level, arousal level, and overall mood state. - Provider Therapist: Deanna Menjivar Nutrition - Current Diet Current Diet/Supplement/Feedings: 2 gram Na ensure plus 8 ounces 2 per day - Appetite Percent Meal Consumed: 75-100% - Assessment/Goals/Time Frame Assessments/Goals/Time Frame: Pt at high nutritional risk. goal: 1. Pt to consume 75-100% of meals. Follow-up due on 07/22/2018 - Provider Provider: Lolita Chew Case Management - Psychosocial Assessment Support Systems: Griffin Ambriz (daughter)- [phone] Psychological Interventions/Needs: Patient is AAO with cognitive impairments. Discharge Concerns: Patient lives in apartment above her sister and has a flight of stais to negotiate. Patient's daughter lives close by and is actively involved her patient's care, but not present 13/01. Patient/Family Meeting: CM met with patient and rehab team. Intervention/Goal/Outcome: 1. Goal: 24hr supervision 2. Plan: home with VNS 3. DME needs 4. f/u appts 5. address discharge concerns 6. continued emotional support - Discharge Plan Discharge Plan: Home with services Home Services: [facility] - Provider Provider: Radha Murray License Number: [id number] Rehabilitation Plan - Treatment Plan Treatment Plan: Physical Therapy, Occupational Therapy, Speech, Dietary, Patient/Family Education - Recommendation Recommendation: Physical Therapy, Occupational Therapy, Speech, Dietary - Discharge Plan Discharge to: Home ([place] )
--- NOTE | 2018-07-22 13:08 | CP.PCM.PN ---
Subjective - Date & Time of Evaluation Date of Evaluation: 07/22/18 Time of Evaluation: 12:30 - Subjective Subjective: patient sitting with sister, eating but with flat affect Objective - Vital Signs/Intake and Output Vital Signs (last 24 hours): Temp Pulse Resp BP Pulse Ox 97.5 F L 56 L 19 123/66 99 07/22/18 09:09 07/22/18 09:09 07/22/18 09:09 07/22/18 09:09 07/22/18 09:09 - Medications Medications: Current Medications Amlodipine Besylate (Norvasc) 2.5 mg PO DAILY [facility] Last Admin: 07/22/18 08:18 Dose: 2.5 mg Apixaban (Eliquis) 2.5 mg PO BID [facility]; Protocol Last Admin: 07/22/18 08:18 Dose: 2.5 mg Aspirin (Aspirin Chewable) 81 mg PO DAILY [facility] Last Admin: 07/22/18 08:17 Dose: 81 mg Atorvastatin Calcium (Lipitor) 80 mg PO HS [facility] Last Admin: 07/21/18 21:47 Dose: 80 mg Citalopram Hydrobromide (Celexa) 20 mg PO DAILY [facility] Last Admin: 07/22/18 08:17 Dose: 20 mg Donepezil HCl (Aricept) 10 mg PO HS [facility] Last Admin: 07/21/18 21:48 Dose: 10 mg Home Med (Patient's Own Medication) 1 unit OU Q12 [facility] Last Admin: 07/22/18 08:19 Dose: 1 unit Home Med (Patient's Own Medication) 1 unit OD BID [facility] Last Admin: 07/22/18 08:19 Dose: 1 unit Levothyroxine Sodium (Synthroid) 100 mcg PO 0600 [facility] Last Admin: 07/22/18 05:47 Dose: 100 mcg Losartan Potassium (Cozaar) 25 mg PO Q12H [facility] Last Admin: 07/22/18 08:18 Dose: 25 mg Metoprolol Tartrate (Lopressor) 50 mg PO BID [facility] Last Admin: 07/22/18 08:18 Dose: Not Given Pantoprazole Sodium (Protonix Susp) 40 mg PO DAILY [facility] Last Admin: 07/22/18 08:18 Dose: 40 mg - Labs Labs: 07/17/18 05:20 07/17/18 05:20 - Constitutional Appears: Well - Head Exam Head Exam: ATRAUMATIC, NORMAL INSPECTION, NORMOCEPHALIC - Eye Exam Eye Exam: EOMI, Normal appearance, PERRL Pupil Exam: NORMAL ACCOMODATION - ENT Exam ENT Exam: Mucous Membranes Moist, Normal Exam - Neck Exam Neck Exam: Full ROM, Normal Inspection - Respiratory Exam Respiratory Exam: Clear to Ausculation Bilateral, NORMAL BREATHING PATTERN - Cardiovascular Exam Cardiovascular Exam: REGULAR RHYTHM - GI/Abdominal Exam GI & Abdominal Exam: Soft, Normal Bowel Sounds - Rectal Exam Rectal Exam: NORMAL INSPECTION - Exam External exam: NORMAL EXTERNAL EXAM - Extremities Exam Extremities Exam: Full ROM, Normal Capillary Refill, Normal Inspection - Back Exam Back Exam: NORMAL INSPECTION - Neurological Exam Neurological Exam: Alert, Awake Neuro motor strength exam: Left Upper Extremity: 3, Right Upper Extremity: 3, Left Lower Extremity: 3, Right Lower Extremity: 3 - Psychiatric Exam Psychiatric exam: Normal Affect, Normal Mood - Skin Skin Exam: Dry, Intact Assessment and Plan (1) Ischemic stroke Assessment & Plan: paln for Dc on jul 28 , discussed with sister. also for family training. asked for psych eval for depression eval and treatment Status: Acute
--- NOTE | 2018-07-23 02:05 | PN ---
DATE: 07/22/2018 SUBJECTIVE: The patient is seen today, 07/22/2018. She is not in any cardiopulmonary distress. PHYSICAL EXAMINATION: VITAL SIGNS: Blood pressure is 123/68, temperature 97.7, respiratory rate 20, and pulse 66. HEENT: Normal-appearing mucosa of the conjunctivae. NECK: Supple. No JVD. No carotid bruit. No lymph node. No thyromegaly. CHEST AND LUNGS: Bilateral symmetrical expansion. Good air exchange. No rales. No rhonchi. CARDIOVASCULAR SYSTEM: PMI not localized. S1, S2. No additional sounds. ABDOMEN: Normoactive bowel sounds. No tenderness. No organomegaly. No masses. EXTREMITIES: No cyanosis, no clubbing, no edema. PALLET REPAIRER: Alert, awake, oriented x2. Positive dysarthria as well as visual field defects. ASSESSMENT: 1. New cerebrovascular accident. 2. History of multiple cerebrovascular accidents. 3. Hypercholesterolemia. 4. Hypertension. 5. Hypothyroidism. PLAN: Continue current medications, and we will consult Psychiatry as the patient seemed to have flat affect. Discussed with PM and R doctor, Dr. Alcantara. Dmitry Fuentes MD
[2018-07-23] MEDS: Levothyroxine 100 MCG TAB PO SCH (06:03)
[2018-07-23] MEDS: TIMOLOL OU SCH ×2 (08:17→21:28)
[2018-07-23] MEDS: BRIMONIDINE OU SCH ×2 (08:17→21:28)
[2018-07-23] MEDS: BRINZOLAMIDE OD SCH ×2 (08:18→17:05)
[2018-07-23] MEDS: Pantoprazole 40 mg Susp UD PO SCH (08:18)
[2018-07-23] MEDS: BRIMONIDINE TART OD SCH ×2 (08:18→17:05)
[2018-07-24] MEDS: Levothyroxine 100 MCG TAB PO SCH (06:08)
[2018-07-24] MEDS: BRINZOLAMIDE OD SCH ×2 (08:38→17:20)
[2018-07-24] MEDS: BRIMONIDINE OU SCH ×2 (08:38→21:15)
[2018-07-24] MEDS: TIMOLOL OU SCH ×2 (08:38→21:15)
[2018-07-24] MEDS: Pantoprazole 40 mg Susp UD PO SCH (08:38)
[2018-07-24] MEDS: BRIMONIDINE TART OD SCH ×2 (08:38→17:20)
--- NOTE | 2018-07-24 13:32 | CP.PCM.CON ---
History of Present Illness - History of Present Illness History of Present Illness: consult requested for depression pt is 68 year old female with CVa admitted for acute rehab, pt on evaluation denied any previous psychiatric hospitalizations or treatment, reported feeling down and sad due to her current medical condition , and limited ability to ambulate pt reported decreased sleep with intermittent insomnia, decreased appetite, sad mood , denied feeling hopeless or helpless stating she has good social support, her daughter and sister whom she lives , pt denied any current suicidal or homicidal ideation, denied perceptual disturbances. alert awake oriented to person and place Past Patient History - Past Medical History & Family History Past Medical History?: Yes - Past Social History Smoking Status: Never Smoked - CARDIAC Hx Hypercholesterolemia: Yes Hx Hypertension: Yes - PULMONARY Hx Respiratory Disorders: No - NEUROLOGICAL HX Cerebrovascular Accident: Yes - HEENT Hx Cataracts: Yes - RENAL Hx Chronic Kidney Disease: No - ENDOCRINE/METABOLIC Hx Endocrine Disorders: Yes Other/Comment: - Borderline diabetes - HEMATOLOGICAL/ONCOLOGICAL Hx AIDS: No Hx Human Immunodeficiency Virus (HIV): No - INTEGUMENTARY Hx Dermatological Problems: No - MUSCULOSKELETAL/RHEUMATOLOGICAL Hx Falls: Yes - GASTROINTESTINAL Hx Gastrointestinal Disorders: No - GENITOURINARY/GYNECOLOGICAL Hx Genitourinary Disorders: No - PSYCHIATRIC Hx Substance Use: No - SURGICAL HISTORY Hx Surgeries: Yes Hx Cataract Extraction: Yes (2017) Hx Thyroidectomy: Yes (2013) Other/Comment: - Carpal tunner surgery more than 10 years ago. - Loop recorder 2018 - ANESTHESIA Hx Anesthesia: Yes Hx Anesthesia Reactions: No Hx Malignant Hyperthermia: No Has any member of the family had a problem w/ anesthesia?: No Meds Allergies/Adverse Reactions: Allergies Allergy/AdvReac Type Severity Reaction Status Date / Time fish oil Allergy RASH Verified 07/16/18 20:45 Iodine and Iodide Containing Allergy ITCHING Verified 07/21/18 10:50 Produc latex Allergy RASH Verified 07/16/18 20:45 Penicillins Allergy RASH Verified 07/16/18 20:45 shellfish derived Allergy RASH Verified 07/24/18 11:15 - Medications Medications: Current Medications Amlodipine Besylate (Norvasc) 2.5 mg PO DAILY [facility] Last Admin: 07/24/18 08:35 Dose: 2.5 mg Apixaban (Eliquis) 2.5 mg PO BID [facility]; Protocol Last Admin: 07/24/18 08:36 Dose: 2.5 mg Aspirin (Aspirin Chewable) 81 mg PO DAILY [facility] Last Admin: 07/24/18 08:37 Dose: 81 mg Atorvastatin Calcium (Lipitor) 80 mg PO HS [facility] Last Admin: 07/23/18 21:29 Dose: 80 mg Citalopram Hydrobromide (Celexa) 20 mg PO DAILY [facility] Last Admin: 07/24/18 08:37 Dose: 20 mg Donepezil HCl (Aricept) 10 mg PO HS [facility] Last Admin: 07/23/18 21:29 Dose: 10 mg Home Med (Patient's Own Medication) 1 unit OU Q12 [facility] Last Admin: 07/24/18 08:38 Dose: 1 unit Home Med (Patient's Own Medication) 1 unit OD BID [facility] Last Admin: 07/24/18 08:38 Dose: 1 unit Levothyroxine Sodium (Synthroid) 100 mcg PO 0600 [facility] Last Admin: 07/24/18 06:08 Dose: 100 mcg Losartan Potassium (Cozaar) 25 mg PO Q12H [facility] Last Admin: 07/24/18 08:37 Dose: 25 mg Metoprolol Tartrate (Lopressor) 50 mg PO BID [facility] Last Admin: 07/23/18 17:05 Dose: 50 mg Pantoprazole Sodium (Protonix Susp) 40 mg PO DAILY [facility] Last Admin: 07/24/18 08:38 Dose: 40 mg Results - Vital Signs Recent Vital Signs: Last Vital Signs Temp 97.4 F L 07/24/18 08:42 Pulse 64 07/24/18 08:42 Resp 19 07/24/18 08:42 BP 122/87 07/24/18 08:42 Pulse Ox 99 07/24/18 08:42 - Labs Result Diagrams: 07/17/18 05:20 07/17/18 05:20 Assessment & Plan - Assessment and Plan (Free Text) Assessment: mood disorder due to medical condition with depressive features Plan: recommend to discontinue celexa due to limitation with dose increase start zoloft 25mg daily and trazodone 25mg qhs for poor sleep social sciences research scientist to arrange for outpatient therapy on discharge
--- NOTE | 2018-07-24 14:37 | CP.PCM.PN ---
Subjective - Date & Time of Evaluation Date of Evaluation: 07/24/18 Time of Evaluation: 12:00 - Subjective Subjective: patient more alert, no acute complaints of pain or anxiety Objective - Vital Signs/Intake and Output Vital Signs (last 24 hours): Temp Pulse Resp BP Pulse Ox 97.4 F L 64 19 122/87 99 07/24/18 08:42 07/24/18 08:42 07/24/18 08:42 07/24/18 08:42 07/24/18 08:42 - Medications Medications: Current Medications Amlodipine Besylate (Norvasc) 2.5 mg PO DAILY [facility] Last Admin: 07/24/18 08:35 Dose: 2.5 mg Apixaban (Eliquis) 2.5 mg PO BID [facility]; Protocol Last Admin: 07/24/18 08:36 Dose: 2.5 mg Aspirin (Aspirin Chewable) 81 mg PO DAILY [facility] Last Admin: 07/24/18 08:37 Dose: 81 mg Atorvastatin Calcium (Lipitor) 80 mg PO HS [facility] Last Admin: 07/23/18 21:29 Dose: 80 mg Citalopram Hydrobromide (Celexa) 20 mg PO DAILY [facility] Last Admin: 07/24/18 08:37 Dose: 20 mg Donepezil HCl (Aricept) 10 mg PO HS [facility] Last Admin: 07/23/18 21:29 Dose: 10 mg Home Med (Patient's Own Medication) 1 unit OU Q12 [facility] Last Admin: 07/24/18 08:38 Dose: 1 unit Home Med (Patient's Own Medication) 1 unit OD BID [facility] Last Admin: 07/24/18 08:38 Dose: 1 unit Levothyroxine Sodium (Synthroid) 100 mcg PO 0600 [facility] Last Admin: 07/24/18 06:08 Dose: 100 mcg Losartan Potassium (Cozaar) 25 mg PO Q12H [facility] Last Admin: 07/24/18 08:37 Dose: 25 mg Metoprolol Tartrate (Lopressor) 50 mg PO BID [facility] Last Admin: 07/23/18 17:05 Dose: 50 mg Pantoprazole Sodium (Protonix Susp) 40 mg PO DAILY [facility] Last Admin: 07/24/18 08:38 Dose: 40 mg - Labs Labs: 07/17/18 05:20 07/17/18 05:20 - Constitutional Appears: Well - Head Exam Head Exam: ATRAUMATIC, NORMAL INSPECTION, NORMOCEPHALIC - Eye Exam Eye Exam: EOMI, Normal appearance Pupil Exam: NORMAL ACCOMODATION, PERRL - ENT Exam ENT Exam: Mucous Membranes Moist, Normal Exam - Neck Exam Neck Exam: Full ROM, Normal Inspection - Respiratory Exam Respiratory Exam: Clear to Ausculation Bilateral - Cardiovascular Exam Cardiovascular Exam: REGULAR RHYTHM - GI/Abdominal Exam GI & Abdominal Exam: Soft, Normal Bowel Sounds - Exam External exam: NORMAL EXTERNAL EXAM - Extremities Exam Extremities Exam: Full ROM, Normal Capillary Refill, Normal Inspection - Back Exam Back Exam: NORMAL INSPECTION - Neurological Exam Neurological Exam: Alert, Awake Neuro motor strength exam: Left Upper Extremity: 3, Right Upper Extremity: 3, Left Lower Extremity: 3, Right Lower Extremity: 3 - Psychiatric Exam Psychiatric exam: Normal Mood - Skin Skin Exam: Normal Color Assessment and Plan (1) Ischemic stroke Assessment & Plan: plan for physical, occupational, speech and rec therapy. Plan for Dc home with family. [facility] follow up On trazadone and zoloft Status: Acute
[2018-07-25] MEDS: Levothyroxine 100 MCG TAB PO SCH (06:06)
[2018-07-25] MEDS: Pantoprazole 40 mg Susp UD PO SCH (08:43)
[2018-07-25] MEDS: TIMOLOL OU SCH ×2 (08:43→21:11)
[2018-07-25] MEDS: BRINZOLAMIDE OD SCH ×2 (08:43→17:21)
[2018-07-25] MEDS: BRIMONIDINE OU SCH ×2 (08:43→21:11)
[2018-07-25] MEDS: BRIMONIDINE TART OD SCH ×2 (08:43→17:21)
--- NOTE | 2018-07-25 13:58 | PN ---
DATE: 07/24/2018 SUBJECTIVE: She is not in any cardiopulmonary distress. The patient is cooperative to physical therapy and occupational therapy. PHYSICAL EXAMINATION: VITAL SIGNS: Blood pressure 130/71, temperature 98, respiratory rate 20 and pulse 60. HEENT: Pupils equal, reactive to light. Normal-appearing mucosa of the conjunctivae, oropharynx and nasal membrane mucosa. NECK: Supple. No JVD. No carotid bruit. No lymph node. No thyromegaly. CHEST AND LUNGS: Bilateral symmetrical expansion. Good air exchange. No rales. No rhonchi. CARDIOVASCULAR SYSTEM: PMI not localized. S1, S2. No additional sounds. ABDOMEN: Normoactive bowel sounds. No tenderness. No organomegaly. No masses. EXTREMITIES: No cyanosis. No clubbing. No edema. CHIEF ENGINEERING DIVISION: The patient is awake, but she has dysarthria and bilateral visual field defect with unsteadiness. ASSESSMENT: 1. New left frontal lobe infarction. 2. Status post multiple cerebrovascular accidents. 3. Hypertension. 4. Hypercholesterolemia. PLAN: Continue current medications, physical therapy and occupational therapy. Dmitry Fuentes MD
[2018-07-26] MEDS: Levothyroxine 100 MCG TAB PO SCH (06:36)
[2018-07-26] MEDS: Pantoprazole 40 mg Susp UD PO SCH (08:31)
[2018-07-26] MEDS: BRIMONIDINE OU SCH ×2 (08:33→21:22)
[2018-07-26] MEDS: TIMOLOL OU SCH ×2 (08:33→21:22)
[2018-07-26] MEDS: BRIMONIDINE TART OD SCH ×2 (08:33→16:00)
[2018-07-26] MEDS: BRINZOLAMIDE OD SCH ×2 (08:33→16:00)
--- NOTE | 2018-07-27 00:36 | PN ---
DATE: 07/26/2018 SUBJECTIVE: The patient is seen today, 07/26/2018. She is not in any cardiopulmonary distress. PHYSICAL EXAMINATION: VITAL SIGNS: Blood pressure 129/70, temperature 97, respiratory rate 20, and pulse 66. HEENT: Pupils equal and reactive to light. Normal-appearing mucosa of the conjunctivae, oropharyngeal, and nasal membrane mucosa. NECK: Supple, no JVD. No carotid bruit. No lymph node. No thyromegaly. CHEST AND LUNGS: Bilateral symmetrical expansion. Good air exchange. No rales, no rhonchi. CARDIOVASCULAR SYSTEM: PMI not localized. S1, S2. No additional sounds. ABDOMEN: Normoactive bowel sounds. No tenderness. No organomegaly. No masses. EXTREMITIES: No cyanosis, no clubbing, no edema. CENTRAL NERVOUS SYSTEM: The patient is awake and oriented x2. Positive visual field defect as well as dysarthria and disequilibrium. ASSESSMENT: 1. New left frontal cerebrovascular accident. 2. History of old multiple cerebrovascular accident. 3. Hypertension. 4. Hypercholesterolemia. PLAN: Continue current physical therapy and follow Psychiatry recommendations for Zoloft and trazodone. Dmitry Fuentes MD
[2018-07-27] MEDS: Levothyroxine 100 MCG TAB PO SCH (06:57)
[2018-07-27] MEDS: BRIMONIDINE OU SCH ×2 (08:21→21:17)
[2018-07-27] MEDS: BRINZOLAMIDE OD SCH ×2 (08:21→17:31)
[2018-07-27] MEDS: TIMOLOL OU SCH ×2 (08:21→21:17)
[2018-07-27] MEDS: Pantoprazole 40 mg Susp UD PO SCH (08:21)
[2018-07-27] MEDS: BRIMONIDINE TART OD SCH ×2 (08:21→17:31)
[2018-07-28] MEDS: Levothyroxine 100 MCG TAB PO SCH (05:31)
[2018-07-28 08:14] VITALS: RESP 19; TEMP 97.6; O2SAT 97
[2018-07-28] MEDS: BRIMONIDINE OU SCH (10:10)
[2018-07-28] MEDS: BRIMONIDINE TART OD SCH (10:10)
[2018-07-28] MEDS: BRINZOLAMIDE OD SCH (10:10)
[2018-07-28] MEDS: TIMOLOL OU SCH (10:10)
[2018-07-28] MEDS: Pantoprazole 40 mg Susp UD PO SCH (10:14)
[2018-07-28 10:16] VITALS: BP 130/67; PULSE 61
--- NOTE | 2018-07-28 19:39 | CP.PCM.PN ---
Subjective - Date & Time of Evaluation Date of Evaluation: 07/26/18 Time of Evaluation: 11:30 - Subjective Subjective: no acute complaints at present Objective - Vital Signs/Intake and Output Vital Signs (last 24 hours): Temp Pulse Resp BP Pulse Ox 97.6 F 61 19 130/67 97 07/28/18 08:13 07/28/18 10:15 07/28/18 08:13 07/28/18 10:15 07/28/18 08:13 - Labs Labs: 07/17/18 05:20 07/17/18 05:20 - Constitutional Appears: Well - Head Exam Head Exam: ATRAUMATIC, NORMAL INSPECTION, NORMOCEPHALIC - Eye Exam Eye Exam: EOMI, Normal appearance Pupil Exam: NORMAL ACCOMODATION, PERRL - ENT Exam ENT Exam: Mucous Membranes Moist, Normal Exam - Neck Exam Neck Exam: Full ROM - Respiratory Exam Respiratory Exam: Clear to Ausculation Bilateral, NORMAL BREATHING PATTERN - Cardiovascular Exam Cardiovascular Exam: REGULAR RHYTHM - GI/Abdominal Exam GI & Abdominal Exam: Soft, Normal Bowel Sounds - Rectal Exam Rectal Exam: NORMAL INSPECTION - Exam External exam: NORMAL EXTERNAL EXAM - Extremities Exam Extremities Exam: Full ROM - Back Exam Back Exam: NORMAL INSPECTION - Neurological Exam Neurological Exam: Alert, Awake Neuro motor strength exam: Left Upper Extremity: 3, Right Upper Extremity: 3, Left Lower Extremity: 3, Right Lower Extremity: 3 - Psychiatric Exam Psychiatric exam: Normal Affect - Skin Skin Exam: Dry, Normal Color, Warm Assessment and Plan (1) Ischemic stroke Assessment & Plan: plan for physical, occupational, rec and speech therapy Status: Acute
--- NOTE | 2018-07-28 19:41 | CP.PCM.PN ---
Subjective - Date & Time of Evaluation Date of Evaluation: 07/28/18 Time of Evaluation: 09:30 - Subjective Subjective: no acute complaints at present Objective - Vital Signs/Intake and Output Vital Signs (last 24 hours): Temp Pulse Resp BP Pulse Ox 97.6 F 61 19 130/67 97 07/28/18 08:13 07/28/18 10:15 07/28/18 08:13 07/28/18 10:15 07/28/18 08:13 - Labs Labs: 07/17/18 05:20 07/17/18 05:20 - Constitutional Appears: Well - Head Exam Head Exam: ATRAUMATIC, NORMAL INSPECTION, NORMOCEPHALIC - Eye Exam Eye Exam: EOMI, Normal appearance Pupil Exam: NORMAL ACCOMODATION, PERRL - ENT Exam ENT Exam: Mucous Membranes Moist - Neck Exam Neck Exam: Normal Inspection - Respiratory Exam Respiratory Exam: Clear to Ausculation Bilateral, NORMAL BREATHING PATTERN - Cardiovascular Exam Cardiovascular Exam: REGULAR RHYTHM - GI/Abdominal Exam GI & Abdominal Exam: Soft, Normal Bowel Sounds - Rectal Exam Rectal Exam: NORMAL INSPECTION - Exam External exam: NORMAL EXTERNAL EXAM Bimanual exam: NORMAL BIMANUAL EXAM - Extremities Exam Extremities Exam: Full ROM, Normal Capillary Refill, Normal Inspection - Neurological Exam Neurological Exam: Alert, Awake Neuro motor strength exam: Left Upper Extremity: 3, Right Upper Extremity: 3, Left Lower Extremity: 3, Right Lower Extremity: 3 - Psychiatric Exam Psychiatric exam: Normal Affect, Normal Mood - Skin Skin Exam: Normal Color Assessment and Plan (1) Ischemic stroke Assessment & Plan: plan for discharge home, home services, equipment for patient, follow up with PMD and neurology after DC Status: Acute
--- NOTE | 2018-07-29 04:36 | DS ---
REASON FOR ADMISSION: This is a 68-year-old female with history of multiple CVAs, was admitted to acute rehabilitation at [facility], [place] after acute CVA. COURSE OF HOSPITALIZATION: The patient was admitted to acute rehabilitation unit, and she was resumed on her medications. The patient was continued on her medications, and she was cooperative to physical therapy and occupational therapy. The patient was discharged home to follow with her primary care physician, Dr. Slater. The patient wanted to go home and was discharged in good spirit. FINAL DIAGNOSES: 1. Left frontal acute cerebrovascular accident. 2. History of multiple cerebrovascular accidents. 3. Depression. 4. Hypothyroidism. 5. Hypertension. [facility] MD Alfredo
== END 2018-07-28 15:49 | disposition home or self-care (01) | DRG 57 ==
PROVIDERS: ADMIT Internal Medicine; ATTEND Internal Medicine
PROC: F07Z9FZ Gait Training/Functional Ambulation Treatment using Assistive, Adaptive, Supportive or Protective Equipment (ICD-10-PCS; principal; 2018-07-16)
PROC: F07M6FZ Therapeutic Exercise Treatment of Musculoskeletal System - Whole Body using Assistive, Adaptive, Supportive or Protective Equipment (ICD-10-PCS; 2018-07-16)
PROC: F08Z4FZ Home Management Treatment using Assistive, Adaptive, Supportive or Protective Equipment (ICD-10-PCS; 2018-07-16)
DX: I69.359 Hemiplegia and hemiparesis following cerebral infarction affecting unspecified side (principal); Q21.1 Atrial septal defect; I69.322 Dysarthria following cerebral infarction; H53.40 Unspecified visual field defects; I10 Essential (primary) hypertension; I25.2 Old myocardial infarction; H26.9 Unspecified cataract; R73.03 Prediabetes; R41.89 Other symptoms and signs involving cognitive functions and awareness; Z85.850 Personal history of malignant neoplasm of thyroid; E78.00 Pure hypercholesterolemia, unspecified; E78.5 Hyperlipidemia, unspecified; F03.90 Unspecified dementia, unspecified severity, without behavioral disturbance, psychotic disturbance, mood disturbance, and anxiety; F06.30 Mood disorder due to known physiological condition, unspecified; F32.9 Major depressive disorder, single episode, unspecified; F41.9 Anxiety disorder, unspecified